=== PATIENT | male | born 1945 | race Caucasian/White ===

== ENCOUNTER 2016-11-23 11:28 | Emergency (ER) | payer MEDICARE, BC ==
[2016-11-23] MEDS ORDERED: SODIUM CHLORIDE 0.9% 500 ML IV STA (11:56)
[2016-11-23] MEDS ORDERED: RX INFO: IV CONTRAST WAS GIVEN 1 EACH MISC MISCELLANE PRN (11:56)
--- NOTE | 2016-11-23 12:11 | ED ---
General Adult HPI - General Chief complaint: Abdominal Pain Stated complaint: abd pain Time Seen by Provider: 11/23/16 11:55 Source: patient, RN notes reviewed, old records reviewed Mode of arrival: ambulatory Limitations: no limitations - History of Present Illness Initial comments: This is a 71-year-old male the ER for evaluation of abdominal pain. Suprapubic and periumbilical doubt pain severe. Pain 5 days. No fevers. No nausea vomiting or diarrhea. Patient's no modifying factors for pain. Is having adequate bowel movements. No travel history or sick contacts - Related Data Home Medications Medication Instructions Recorded Confirmed HYDROcodone/APAP 7.5-325MG [[place] 1 tab PO QID PRN 11/23/16 11/23/16 7.5-325] Meloxicam [Mobic] 7.5 mg PO BID 11/23/16 11/23/16 Previous Rx's Medication Instructions Recorded Ciprofloxacin HCl [Cipro] 500 mg PO Q12HR #14 tablet 11/23/16 HYDROcodone/APAP 5-325MG [[place] 1 tab PO Q6HR PRN #30 tab 11/23/16 5-325] Ondansetron [Zofran] 4 mg PO Q8HR PRN #30 tab 11/23/16 metroNIDAZOLE [Flagyl] 500 mg PO Q8HR #21 tab 11/23/16 Allergies Allergy/AdvReac Type Severity Reaction Status Date / Time No Known Allergies Allergy Verified 11/23/16 12:54 Review of Systems ROS Statement: Those systems with pertinent positive or pertinent negative responses have been documented in the HPI. ROS Other: All systems not noted in ROS Statement are negative. Past Medical History Additional Past Medical History / Comment(s): diverticulitis, broken back History of Any Multi-Drug Resistant Organisms: None Reported Past Surgical History: Orthopedic Surgery Additional Past Surgical History / Comment(s): kidney removed, spleen removed Past Psychological History: No Psychological Hx Reported Smoking Status: Former smoker Past Alcohol Use History: None Reported Past Drug Use History: None Reported General Exam Limitations: no limitations General appearance: alert, in no apparent distress Head exam: Present: atraumatic, normocephalic, normal inspection Eye exam: Present: normal appearance, PERRL, EOMI. Absent: scleral icterus, conjunctival injection, periorbital swelling ENT exam: Present: normal exam, mucous membranes moist Neck exam: Present: normal inspection. Absent: tenderness, meningismus, lymphadenopathy Respiratory exam: Present: normal lung sounds bilaterally. Absent: respiratory distress, wheezes, rales, rhonchi, stridor Cardiovascular Exam: Present: normal rhythm, tachycardia, normal heart sounds. Absent: systolic murmur, diastolic murmur, rubs, gallop, clicks GI/Abdominal exam: Present: soft, normal bowel sounds. Absent: distended, tenderness, guarding, rebound, rigid Extremities exam: Present: normal inspection, full ROM, normal capillary refill. Absent: tenderness, pedal edema, joint swelling, calf tenderness Back exam: Present: normal inspection Neurological exam: Present: alert, oriented X3, CN II-XII intact Psychiatric exam: Present: normal affect, normal mood Skin exam: Present: warm, dry, intact, normal color. Absent: rash Course Vital Signs 11/23/16 11/23/16 11/23/16 11:33 13:00 13:30 Temperature 97.7 F 97.2 F L 97.7 F Pulse Rate 107 H 118 H 76 Respiratory 18 16 16 Rate Blood Pressure 197/92 153/85 151/83 O2 Sat by Pulse 97 96 95 Oximetry 11/23/16 14:27 Temperature 97.8 F Pulse Rate 76 Respiratory 16 Rate Blood Pressure 171/83 O2 Sat by Pulse 97 Oximetry - Reevaluation(s) Reevaluation #1: 11/23/16 14:46 Patient's pain is symptoms are controlled, able to tolerate oral intake Medical Decision Making - Medical Decision Making 71 and LDL upon [facility] diverticulitis history of diverticulitis. No abscess. Patient is able to tolerate oral intake at this time will be discharged home to try conservative outpatient therapy, return if symptoms worsen - Lab Data Result diagrams: 11/23/16 12:50 11/23/16 12:50 Lab Results 11/23/16 11/23/16 11/23/16 Range/Units 12:50 12:50 12:50 WBC 17.8 H (3.8-10.6) k/uL RBC 4.74 (4.30-5.90) m/uL Hgb 15.6 (13.0-17.5) gm/dL Hct 48.6 (39.0-53.0) % MCV 102.7 H (80.0-100.0) fL MCH 33.0 (25.0-35.0) pg MCHC 32.2 (31.0-37.0) g/dL RDW 13.5 (11.5-15.5) % Plt Count 436 (150-450) k/uL Neutrophils % 82 % Lymphocytes % 10 % Monocytes % 5 % Eosinophils % 1 % Basophils % 0 % Neutrophils # 14.7 H (1.3-7.7) k/uL Lymphocytes # 1.8 (1.0-4.8) k/uL Monocytes # 1.0 (0-1.0) k/uL Eosinophils # 0.1 (0-0.7) k/uL Basophils # 0.0 (0-0.2) k/uL Macrocytosis Slight Sodium 138 (137-145) mmol/L Potassium 4.2 (3.5-5.1) mmol/L Chloride 100 (98-107) mmol/L Carbon Dioxide 23 (22-30) mmol/L Anion Gap 15 mmol/L BUN 14 (9-20) mg/dL Creatinine 0.75 (0.66-1.25) mg/dL Est GFR (MDRD) Af Amer >60 (>60 ml/min/1.73 sqM) Est GFR (MDRD) Non-Af >60 (>60 ml/min/1.73 sqM) Glucose 117 H (74-99) mg/dL Plasma Lactic Acid [place] 1.0 (0.7-2.0) mmol/L Calcium 9.9 (8.4-10.2) mg/dL Total Bilirubin 0.8 (0.2-1.3) mg/dL AST 18 (17-59) U/L ALT 25 (21-72) U/L Alkaline Phosphatase 85 (38-126) U/L Total Protein 7.5 (6.3-8.2) g/dL Albumin 4.2 (3.5-5.0) g/dL Amylase 92 (30-110) U/L Lipase 161 (23-300) U/L Urine Color Urine Appearance (Clear) Urine pH (5.0-8.0) Ur Specific [place] (1.001-1.035) Urine Protein (Negative) Urine Glucose (UA) (Negative) Urine Ketones (Negative) Urine Blood (Negative) Urine Nitrite (Negative) Urine Bilirubin (Negative) Urine Urobilinogen (<2.0) mg/dL Ur Leukocyte Esterase (Negative) Urine RBC (0-5) /hpf Urine WBC (0-5) /hpf Hyaline Casts (0-2) /lpf Urine Mucus (None) /hpf 11/23/16 Range/Units 13:00 WBC (3.8-10.6) k/uL RBC (4.30-5.90) m/uL Hgb (13.0-17.5) gm/dL Hct (39.0-53.0) % MCV (80.0-100.0) fL MCH (25.0-35.0) pg MCHC (31.0-37.0) g/dL RDW (11.5-15.5) % Plt Count (150-450) k/uL Neutrophils % % Lymphocytes % % Monocytes % % Eosinophils % % Basophils % % Neutrophils # (1.3-7.7) k/uL Lymphocytes # (1.0-4.8) k/uL Monocytes # (0-1.0) k/uL Eosinophils # (0-0.7) k/uL Basophils # (0-0.2) k/uL Macrocytosis Sodium (137-145) mmol/L Potassium (3.5-5.1) mmol/L Chloride (98-107) mmol/L Carbon Dioxide (22-30) mmol/L Anion Gap mmol/L BUN (9-20) mg/dL Creatinine (0.66-1.25) mg/dL Est GFR (MDRD) Af Amer (>60 ml/min/1.73 sqM) Est GFR (MDRD) Non-Af (>60 ml/min/1.73 sqM) Glucose (74-99) mg/dL Plasma Lactic Acid [place] (0.7-2.0) mmol/L Calcium (8.4-10.2) mg/dL Total Bilirubin (0.2-1.3) mg/dL AST (17-59) U/L ALT (21-72) U/L Alkaline Phosphatase (38-126) U/L Total Protein (6.3-8.2) g/dL Albumin (3.5-5.0) g/dL Amylase (30-110) U/L Lipase (23-300) U/L Urine Color Yellow Urine Appearance Clear (Clear) Urine pH 6.0 (5.0-8.0) Ur Specific [place] 1.026 (1.001-1.035) Urine Protein 3+ H (Negative) Urine Glucose (UA) Negative (Negative) Urine Ketones 3+ H (Negative) Urine Blood Negative (Negative) Urine Nitrite Negative (Negative) Urine Bilirubin Negative (Negative) Urine Urobilinogen 3.0 (<2.0) mg/dL Ur Leukocyte Esterase Negative (Negative) Urine RBC <1 (0-5) /hpf Urine WBC 2 (0-5) /hpf Hyaline Casts 4 H (0-2) /lpf Urine Mucus Few H (None) /hpf - Radiology Data Radiology results: report reviewed (CT pelvis positive for diverticulitis), image reviewed Disposition Clinical Impression: Abdominal pain, Diverticulitis Disposition: HOME SELF-CARE Condition: Good Instructions: Diverticulitis (ED) Prescriptions: Ciprofloxacin HCl [Cipro] 500 mg PO Q12HR #14 tablet HYDROcodone/APAP 5-325MG [[place] 5-325] 1 tab PO Q6HR PRN #30 tab PRN Reason: Pain metroNIDAZOLE [Flagyl] 500 mg PO Q8HR #21 tab Ondansetron [Zofran] 4 mg PO Q8HR PRN #30 tab PRN Reason: Nausea Referrals: Colton Jamison MD [Medical Doctor] - 1-2 days
[2016-11-23 13:10] LABS: Basophils % (A) 0 %; CH 34.2; CHCM 33.5; Eosinophils # (A) 0.1 k/uL (0-0.7); Eosinophils % (A) 1 %; HCT 48.6 % (39.0-53.0); HDW 1.87; HGB 15.6 gm/dL (13.0-17.5); Luc % (Auto) 2; Lymphocytes # (A) 1.8 k/uL (1.0-4.8); Lymphocytes % (A) 10 %; MCHC 32.2 g/dL (31.0-37.0); MCV 102.7 fL (80.0-100.0); Macrocytosis Slight; Mean Platelet Volume 7.8; Monocytes % (A) 5 %; Neutrophils # (A) 14.7 k/uL (1.3-7.7); Neutrophils % (A) 82 %; RBC 4.74 m/uL (4.30-5.90); RDW 13.5 % (11.5-15.5); WBC 17.8 k/uL (3.8-10.6); WBC (Perox) 16.79
[2016-11-23 13:21] LABS: ALT 25 U/L (21-72); AST 18 U/L (17-59); Alkaline Phosphatase 85 U/L (38-126); Amylase 92 U/L (30-110); Anion Gap 15 mmol/L; Blood Urea Nitrogen 14 mg/dL (9-20); Calcium 9.9 mg/dL (8.4-10.2); Carbon Dioxide 23 mmol/L (22-30); Chloride 100 mmol/L (98-107); Glucose 117 mg/dL (74-99); Non-African American GFR(MDRD) >60 (>60 ml/min/1.73 sqM); Potassium 4.2 mmol/L (3.5-5.1); Sodium 138 mmol/L (137-145); Total Bilirubin 0.8 mg/dL (0.2-1.3); Total Protein 7.5 g/dL (6.3-8.2)
[2016-11-23 13:29] LABS: Appearance,Urine Clear (Clear); Bilirubin,Urine Negative (Negative); Glucose,Urine (UA) Negative (Negative); Ketones,Urine 3+ (Negative); Leukocyte Esterase,Urine Negative (Negative); Mucus,Urine Few /hpf; Nitrite,Urine Negative (Negative); Particle Count 7159; Protein,Urine 3+ (Negative); RBC,Urine <1 /hpf (0-5); Specific Gravity,Urine 1.026 (1.001-1.035); UA Billing (MACRO vs. MICRO) MICRO; WBC,Urine 2 /hpf (0-5)
--- NOTE | 2016-11-23 14:29 | CT ---
EXAMINATION TYPE: CT abdomen pelvis w con DATE OF EXAM: 11/23/2016 COMPARISON: NONE HISTORY: Pelvic pain and cramping per patient. Abdominal pain per order CT DLP: 896.2 mGycm, Automated Exposure Control for Dose Reduction was Utilized. CONTRAST: CT scan of the abdomen and pelvis is performed without oral and with IV Contrast, patient injected wi th 100 mL of Omnipaque 300. FINDINGS: LUNG BASES: Dependent atelectasis in both lung bases is present. LIVER/GB: No significant abnormality is appreciated. PANCREAS: No significant abnormality is seen. 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 Hyperdense nodules ex tend along the left paracolic and infracolic gutter with larger confluent area seen on axial image 52 . This extends along the anterior sigmoid colon. ADRENALS: No significant abnormality is seen. KIDNEYS: Left kidney is not visualized and presumed surgically absent. Small round 7 mm soft tissue n odule at left renal bed is noted on axial image 31. Correlate with old outside study as early neoplas tic recurrence cannot be excluded. BOWEL: Evaluation bowel is suboptimal secondary to lack of enteric contrast. There is no suspicious s mall or large bowel dilatation. There are diverticula in the left and sigmoid colon. There is promine nt diverticulosis proximal sigmoid colon. In distal sigmoid colon near sigmoid rectal junction there is eccentric moderate to severe wall thickening with left lateral ill-defined fluid or inflammatory c hange, colitis or acute diverticulitis at this level is suspected. No free air is seen. No well-forme d drainable abscess is noted. PROSTATE/SEMINAL VESICLES: No gross abnormality seen. LYMPH NODES: No greater than 1cm abdominal or pelvic lymph nodes are appreciated. OSSEOUS STRUCTURES: There is marked disc space narrowing and spurring at L4-L5 level. OTHER: There is mild to moderate calcified atherosclerotic change of aorta extending into branch vess els. IMPRESSION: 1. Acute colitis possible diverticulitis in the pelvis near distal sigmoid colon and sigmoid rectal j unction as detailed above.
[2016-11-23] MEDS ORDERED: ONDANSETRON 4 MG/2 ML VIAL IVP STA (14:43)
[2016-11-23] MEDS ORDERED: metroNIDAZOLE 500 MG TAB PO STA (14:43)
[2016-11-23] MEDS ORDERED: MORPHINE SULFATE 4 MG/ML SYRINGE IVP STA (14:43)
[2016-11-23] MEDS ORDERED: CIPROFLOXACIN HCL 500 MG TAB PO STA (14:43)
[2016-11-23] MEDS ORDERED: AMPICILLIN-SULBACTAM 3 GM in SODIUM CHLORIDE 0.9% 100 ML IVPB STA (14:45)
[2016-11-23 16:01] VITALS: BP 188/96; PULSE 77; RESP 19; TEMP 98.7
== END 2016-11-23 16:14 | disposition home or self-care (01) ==
LOC: EC 11:28
DX: K57.32 Diverticulitis of large intestine without perforation or abscess without bleeding (principal); R10.33 Periumbilical pain; R00.0 Tachycardia, unspecified; Z87.891 Personal history of nicotine dependence; Z79.1 Long term (current) use of non-steroidal anti-inflammatories (NSAID)
CPT/HCPCS: 36415; 80053; 82150; 83605; 83690; 85025; 81001; 87086; 74177; 99284; 96374; 96375; J2270; J2405; Q9967; J0295

== ENCOUNTER 2017-07-10 10:48 | Inpatient (IN) | payer MEDICARE, BC ==
[2017-07-10] MEDS ORDERED: ONDANSETRON 4 MG/2 ML VIAL IVP STA (12:40)
[2017-07-10] MEDS ORDERED: SODIUM CHLORIDE 0.9% 1,000 ML IV STA (12:40)
[2017-07-10] MEDS ORDERED: RX INFO: IV CONTRAST WAS GIVEN 1 EACH MISC MISCELLANE PRN (12:40)
[2017-07-10] MEDS: HYDROmorphone 4 MG/ML 1 ML SYRINGE IVP STA ×2 (12:52→17:52)
--- NOTE | 2017-07-10 13:03 | ED ---
General Adult HPI <Larry Heck - Last Filed: 07/10/17 14:52> - General Source: patient, RN notes reviewed Mode of arrival: ambulatory Limitations: no limitations <Colton Layton - Last Filed: 07/10/17 14:55> - General Chief complaint: Abdominal Pain Stated complaint: diverticulitis Time Seen by Provider: 07/10/17 12:28 - History of Present Illness Initial comments: Patient 71-year-old male significant past medical history for diverticulitis presenting today with a chief complaint of possible diverticulitis. This but that is had some abdominal pain over the last few weeks. He states does not seem to be getting any better. He does admit that it feels similar to diverticulitis that is had in the past. He states she's not had any diarrhea has not seen any blood in the stool. Has had bowel movements. He states he has increased pain and cramping on the left side of the abdomen. He denies any other complaints or symptoms. Patient denies any recent fever, chills, shortness of breath, chest pain, vomiting, numbness or tingling, dysuria or hematuria, constipation or diarrhea, headaches or visual changes, or any other complaints. (Colton Layton) - Related Data Home Medications Medication Instructions Recorded Confirmed HYDROcodone/APAP 7.5-325MG [[place] 1 tab PO QID PRN 11/23/16 07/10/17 7.5-325] Meloxicam [Mobic] 7.5 mg PO BID PRN 11/23/16 07/10/17 Msm Powder 1 dose PO DAILY 07/10/17 07/10/17 Allergies Allergy/AdvReac Type Severity Reaction Status Date / Time No Known Allergies Allergy Verified 07/10/17 12:31 Review of Systems ROS Other: All systems not noted in ROS Statement are negative. <Larry Heck - Last Filed: 07/10/17 14:52> ROS Other: All systems not noted in ROS Statement are negative. <Colton Layton - Last Filed: 07/10/17 14:55> ROS Statement: Those systems with pertinent positive or pertinent negative responses have been documented in the HPI. Past Medical History Additional Past Medical History / Comment(s): diverticulitis, broken back History of Any Multi-Drug Resistant Organisms: None Reported Past Surgical History: Orthopedic Surgery Additional Past Surgical History / Comment(s): kidney removed, spleen removed Past Psychological History: No Psychological Hx Reported Smoking Status: Former smoker Past Alcohol Use History: None Reported Past Drug Use History: None Reported <Colton Layton - Last Filed: 07/10/17 14:55> General Exam <Larry Heck - Last Filed: 07/10/17 14:52> Limitations: no limitations <Colton Layton - Last Filed: 07/10/17 14:55> - General Exam Comments Initial Comments: General: The patient is awake and alert, in no distress, and does not appear acutely ill. Eye: Pupils are equal, round and reactive to light, extra-ocular movements are intact. No nystagmus. There is normal conjunctiva bilaterally. No signs of icterus. Ears, nose, mouth and throat: There are moist mucous membranes and no oral lesions. Neck: The neck is supple, there is no tenderness or JVD. Cardiovascular: There is a regular rate and rhythm. No murmur, rub or gallop is appreciated. Respiratory: Lungs are clear to auscultation, respirations are non-labored, breath sounds are equal. No wheezes, stridor, rales, or rhonchi. Gastrointestinal: Soft, non-distended. Tender palpation left side of the abdomen. There is no rebound or guarding present. No CVA tenderness. Bowel sounds are unremarkable. Musculoskeletal: Normal ROM, no tenderness. Strength 5/5. Sensation intact. Pulses equal bilaterally 2+. Neurological: A&O x 3. CN II-XII intact, There are no obvious motor or sensory deficits. Coordination appears grossly intact. Speech is normal. Skin: Skin is warm and dry and no rashes or lesions are noted. Psychiatric: Cooperative, appropriate mood & affect, normal judgment. (Colton Layton) Vital Signs 07/10/17 10:52 Temperature 97.8 F Pulse Rate 100 Respiratory 20 Rate Blood Pressure 145/69 O2 Sat by Pulse 100 Oximetry Medical Decision Making - Lab Data Result diagrams: 07/10/17 12:50 07/10/17 12:50 <Larry Heck - Last Filed: 07/10/17 14:52> - Lab Data Result diagrams: 07/10/17 12:50 07/10/17 12:50 <Colton Layton - Last Filed: 07/10/17 14:55> - Medical Decision Making The patient was seen and examined. All diagnostics were reviewed. Case will be discussed with medicine in the near future and patient will be admitted to the hospital with surgery to consult. I have discussed the case with the PA and I agree with the findings as documented. (Larry Heck) Patient's labs reviewed shows 19,[address] of the abdomen and pelvis reviewed does show sigmoid diverticulitis with multiple abscesses one measuring 6 x 5 cm and a second measuring 3 x 3 cm in size. Results were discussed with patient. She was started on antibiotics of Levaquin and Flagyl here in emergency room. Patient will be admitted to hospital with consult from surgeon. (Colton Layton) - Lab Data Lab Results 07/10/17 07/10/17 Range/Units 12:50 12:50 WBC 19.1 H (3.8-10.6) k/uL RBC 4.16 L (4.30-5.90) m/uL Hgb 13.8 (13.0-17.5) gm/dL Hct 42.7 (39.0-53.0) % MCV 102.9 H (80.0-100.0) fL MCH 33.2 (25.0-35.0) pg MCHC 32.3 (31.0-37.0) g/dL RDW 11.3 L (11.5-15.5) % Plt Count 612 H (150-450) k/uL Neutrophils % 81 % Lymphocytes % 10 % Monocytes % 6 % Eosinophils % 1 % Basophils % 0 % Neutrophils # 15.6 H (1.3-7.7) k/uL Lymphocytes # 2.0 (1.0-4.8) k/uL Monocytes # 1.1 H (0-1.0) k/uL Eosinophils # 0.1 (0-0.7) k/uL Basophils # 0.1 (0-0.2) k/uL Sodium 140 (137-145) mmol/L Potassium 4.2 (3.5-5.1) mmol/L Chloride 99 (98-107) mmol/L Carbon Dioxide 27 (22-30) mmol/L Anion Gap 14 mmol/L BUN 14 (9-20) mg/dL Creatinine 1.10 (0.66-1.25) mg/dL Est GFR (MDRD) Af Amer >60 (>60 ml/min/1.73 sqM) Est GFR (MDRD) Non-Af >60 (>60 ml/min/1.73 sqM) Glucose 125 H (74-99) mg/dL Calcium 9.6 (8.4-10.2) mg/dL Total Bilirubin 0.5 (0.2-1.3) mg/dL AST 21 (17-59) U/L ALT 33 (21-72) U/L Alkaline Phosphatase 78 (38-126) U/L Total Protein 7.3 (6.3-8.2) g/dL Albumin 3.9 (3.5-5.0) g/dL Amylase 65 (30-110) U/L Lipase 85 (23-300) U/L Disposition <Larry Heck - Last Filed: 07/10/17 14:52> Time of Disposition: 14:40 <Colton Layton - Last Filed: 07/10/17 14:55> Clinical Impression: Sigmoid diverticulitis Disposition: ADMITTED IP TO THIS HOSP Condition: Stable Referrals: Rory Damon DO [Primary Care Provider] - 1-2 days
[2017-07-10 13:05] LABS: Basophils # (A) 0.1 k/uL (0-0.2); Basophils % (A) 0 %; Eosinophils # (A) 0.1 k/uL (0-0.7); Eosinophils % (A) 1 %; HCT 42.7 % (39.0-53.0); HGB 13.8 gm/dL (13.0-17.5); Lymphocytes % (A) 10 %; MCH 33.2 pg (25.0-35.0); MCHC 32.3 g/dL (31.0-37.0); MCV 102.9 fL (80.0-100.0); Mean Platelet Volume 7.1; Monocytes # (A) 1.1 k/uL (0-1.0); Monocytes % (A) 6 %; Neutrophils # (A) 15.6 k/uL (1.3-7.7); Neutrophils % (A) 81 %; Platelet Count 612 k/uL (150-450); RBC 4.16 m/uL (4.30-5.90); RDW 11.3 % (11.5-15.5); WBC 19.1 k/uL (3.8-10.6)
[2017-07-10 13:10] LABS: ALT 33 U/L (21-72); AST 21 U/L (17-59); Albumin 3.9 g/dL (3.5-5.0); Alkaline Phosphatase 78 U/L (38-126); Amylase 65 U/L (30-110); Anion Gap 14 mmol/L; Blood Urea Nitrogen 14 mg/dL (9-20); Calcium 9.6 mg/dL (8.4-10.2); Carbon Dioxide 27 mmol/L (22-30); Chloride 99 mmol/L (98-107); Glucose 125 mg/dL (74-99); Lipase 85 U/L (23-300); Potassium 4.2 mmol/L (3.5-5.1); Sodium 140 mmol/L (137-145); Total Bilirubin 0.5 mg/dL (0.2-1.3); Total Protein 7.3 g/dL (6.3-8.2)
--- NOTE | 2017-07-10 14:40 | CT ---
EXAMINATION TYPE: CT abdomen pelvis w con DATE OF EXAM: 07/10/2017 COMPARISON: 11/23/2016 HISTORY: Patient complains of bilateral lower quadrant pain and bloating. CT DLP: 986.1 mGycm CONTRAST: CT scan of the abdomen and pelvis is performed without Oral Contrast and with IV Contrast, patient in jected with 100 mL of Visipaque 320. FINDINGS: LUNG BASES-: No visible nodule. No infiltrate. LIVER/GB: No calcified gallstones. No space occupying hepatic lesion. Biliary tree is of normal ca liber. PANCREAS: No inflammation. No distinct mass. SPLEEN: No splenic enlargement. No lesion seen. ADRENALS: No nodule. No thickening. KIDNEYS/BLADDER: Left-sided nephrectomy changes. No hydronephrosis. No nephrolithiasis. No distinc t renal mass. Reactive urinary bladder wall thickening. BOWEL: There is large multi focal diverticular abscess with dominant abscess measuring 6.3 x 5.8 cm a djacent to the sigmoid colon. An additional abscess is noted measuring 3.8 x 3.3 cm. No evidence for pneumoperitoneum. No additional abscesses seen with certainty. Small bowel ileus noted. Normal append ix. GENITAL ORGANS: No gross abnormality. LYMPH NODES: No greater than 1cm abdominal or pelvic lymph nodes are appreciated. AORTA: No significant abnormality. OSSEOUS STRUCTURES: No significant abnormality is seen. OTHER: No significant additional abnormality is seen. IMPRESSION: 1. Acute sigmoid diverticulitis with multifocal abscess formation as noted above. 2. Reactive wall thickening of the urinary bladder.
[2017-07-10] MEDS ORDERED: metroNIDAZOLE-NS PMX 500 MG in SALINE 1 100ML.BAG IVPB STA (14:45)
[2017-07-10] MEDS ORDERED: LEVOFLOXACIN 750MG-D5W PMX 750 MG in DEXTROSE/WATER 1 150ML.BAG IVPB STA (14:45)
[2017-07-10] MEDS ORDERED: HYDROmorphone 4 MG/ML 1 ML SYRINGE IVP STA (14:51)
[2017-07-10] MEDS ORDERED: HYDROmorphone 2 MG/ML 1 ML SYRINGE IVP PRN (14:52)
[2017-07-10] MEDS ORDERED: NALOXONE 0.4 MG/ML 1 ML VIAL IV PRN (14:52)
[2017-07-10] MEDS ORDERED: HYDROcodone/APAP 7.5-325MG 1 EACH TAB PO PRN (16:51)
[2017-07-10] MEDS: ONDANSETRON 4 MG/2 ML VIAL IVP PRN (19:24)
[2017-07-10] MEDS: HYDROmorphone 4 MG/ML 1 ML SYRINGE IVP PRN ×2 (21:00→23:58)
[2017-07-10] MEDS: metroNIDAZOLE-NS PMX 500 MG in SALINE 1 100ML.BAG IVPB SCH (23:36)
[2017-07-11 00:26] LABS: Appearance,Urine Clear (Clear); Bilirubin,Urine Negative (Negative); Blood,Urine Negative (Negative); Color,Urine Yellow; Glucose,Urine (UA) Negative (Negative); Ketones,Urine 1+ (Negative); Leukocyte Esterase,Urine Negative (Negative); PH, Urine 5.5 (5.0-8.0); Protein,Urine Trace (Negative); Specific Gravity,Urine 1.024 (1.001-1.035); Urobilinogen,Urine <2.0 mg/dL (<2.0)
[2017-07-11] MEDS: HYDROmorphone 4 MG/ML 1 ML SYRINGE IVP PRN ×7 (03:59→22:38)
[2017-07-11 07:34] LABS: Basophils # (A) 0.1 k/uL (0-0.2); Basophils % (A) 0 %; Eosinophils # (A) 0.2 k/uL (0-0.7); Eosinophils % (A) 1 %; HCT 41.5 % (39.0-53.0); HGB 13.4 gm/dL (13.0-17.5); Lymphocytes # (A) 1.7 k/uL (1.0-4.8); Lymphocytes % (A) 10 %; MCH 33.2 pg (25.0-35.0); MCHC 32.4 g/dL (31.0-37.0); MCV 102.5 fL (80.0-100.0); Mean Platelet Volume 7.1; Monocytes # (A) 1.1 k/uL (0-1.0); Monocytes % (A) 6 %; Neutrophils # (A) 14.5 k/uL (1.3-7.7); Neutrophils % (A) 81 %; Platelet Count 599 k/uL (150-450); RBC 4.05 m/uL (4.30-5.90); RDW 11.3 % (11.5-15.5); WBC 17.9 k/uL (3.8-10.6)
[2017-07-11] MEDS: ONDANSETRON 4 MG/2 ML VIAL IVP PRN ×2 (07:37→16:18)
[2017-07-11 07:45] LABS: ALT 27 U/L (21-72); AST 15 U/L (17-59); Albumin 3.4 g/dL (3.5-5.0); Alkaline Phosphatase 76 U/L (38-126); Anion Gap 11 mmol/L; Blood Urea Nitrogen 11 mg/dL (9-20); Calcium 9.6 mg/dL (8.4-10.2); Carbon Dioxide 25 mmol/L (22-30); Chloride 104 mmol/L (98-107); Glucose 117 mg/dL (74-99); Potassium 4.4 mmol/L (3.5-5.1); Sodium 140 mmol/L (137-145); Total Bilirubin 0.6 mg/dL (0.2-1.3); Total Protein 6.6 g/dL (6.3-8.2)
[2017-07-11] MEDS: metroNIDAZOLE-NS PMX 500 MG in SALINE 1 100ML.BAG IVPB SCH ×2 (08:50→16:19)
[2017-07-11] MEDS: PANTOPRAZOLE 40 MG/10 ML VIAL IVP SCH (08:51)
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
[2017-07-11 14:03] LABS: INR 1.2 (<1.2); Prothrombin Time 11.2 sec (9.0-12.0)
[2017-07-11] MEDS ORDERED: LEVOFLOXACIN 500MG-D5W PMX 500 MG in DEXTROSE/WATER 1 100ML.BAG IVPB SCH (15:00)
--- NOTE | 2017-07-11 16:12 | CT ---
EXAMINATION TYPE: CT guided abscess drainage DATE OF EXAM: 07/11/2017 COMPARISON: NONE HISTORY: Pelvic abscess FINDINGS: The procedure is discussed with the patient, the risks, complications, benefits and alternatives, wer e discussed and any questions were answered. Informed consent was obtained. The patient is placed p jacquelyn on the CT table, prepped and draped in the usual sterile fashion. Utilizing a 22-gauge Chiba needle access into the pelvic abscess was achieved and there is conversion to an O.035 system. There was subsequent placement over 0.035 guidewire and serial dilation 8 [place] with placement 8 [place] drainage catheter. Repeat imaging demonstrated ideal placement of the cathet er. Sample sent to pathology for analysis. All elements of maximal barrier technique were utilized. The patient remained stable throughout the procedure with no immediate postprocedural complication. IMPRESSION: 1. Successful CT guided pelvic abscess drainage catheter insertion.
[2017-07-11] MEDS: SODIUM CHLORIDE 0.9% 1,000 ML IV SCH (17:38)
[2017-07-12] MEDS: ONDANSETRON 4 MG/2 ML VIAL IVP PRN ×4 (00:18→23:45)
[2017-07-12] MEDS: metroNIDAZOLE-NS PMX 500 MG in SALINE 1 100ML.BAG IVPB SCH ×4 (00:18→23:45)
[2017-07-12] MEDS: HYDROmorphone 4 MG/ML 1 ML SYRINGE IVP PRN ×8 (01:44→23:45)
[2017-07-12] MEDS: SODIUM CHLORIDE 0.9% 1,000 ML IV SCH ×3 (05:18→20:58)
[2017-07-12] MEDS: PANTOPRAZOLE 40 MG/10 ML VIAL IVP SCH (08:16)
[2017-07-12 08:28] LABS: Basophils # (A) 0.1 k/uL (0-0.2); Basophils % (A) 0 %; Eosinophils # (A) 0.1 k/uL (0-0.7); Eosinophils % (A) 1 %; HCT 41.9 % (39.0-53.0); HGB 13.3 gm/dL (13.0-17.5); Lymphocytes # (A) 1.4 k/uL (1.0-4.8); Lymphocytes % (A) 7 %; MCH 33.5 pg (25.0-35.0); MCHC 31.8 g/dL (31.0-37.0); MCV 105.4 fL (80.0-100.0); Macrocytosis Slight; Mean Platelet Volume 6.9; Monocytes # (A) 1.1 k/uL (0-1.0); Monocytes % (A) 6 %; Neutrophils # (A) 15.5 k/uL (1.3-7.7); Neutrophils % (A) 84 %; Platelet Count 582 k/uL (150-450); RBC 3.97 m/uL (4.30-5.90); RDW 11.3 % (11.5-15.5); WBC 18.5 k/uL (3.8-10.6)
--- NOTE | 2017-07-12 08:55 | P.PN ---
Subjective Progress Note Date: 07/12/17 Principal diagnosis: Diverticulitis Patient had his catheter placed yesterday. He did have some discomfort during the procedure. Catheter is draining purulent fluid. Overall feels better today. He is hungry. White blood cell count is increased at 18. Objective - Vital Signs Vital signs: Vital Signs Temp 98.7 F 07/12/17 07:53 Pulse 72 07/12/17 07:53 Resp 16 07/12/17 07:53 BP 152/73 07/12/17 07:53 Pulse Ox 96 07/12/17 07:53 Intake & Output 07/11/17 07/12/17 07/12/17 18:59 06:59 18:59 Intake Total 800 Balance 800 Weight 90.718 kg Intake: Intake, IV Titration 800 Amount Sodium Chloride 0.9% 1, 700 000 ml @ 100 mls/hr IV . Q10H JAKE Rx#:[id number] metroNIDAZOLE-NS PMX 500 100 mg In Saline 1 100ml.bag @ 100 mls/hr IVPB Q8HR JAKE Rx#:[id number] Other: Voiding Method Toilet Toilet # Voids 2 - Exam Abdomen: Soft, nondistended, mild suprapubic tenderness with catheter intact - Labs CBC & Chem 7: 07/12/17 07:59 07/11/17 07:16 Labs: Abnormal Lab Results - Last 24 Hours (Table) 07/11/17 07/12/17 Range/Units 07:20 07:59 WBC 18.5 H (3.8-10.6) k/uL RBC 3.97 L (4.30-5.90) m/uL MCV 105.4 H (80.0-100.0) fL RDW 11.3 L (11.5-15.5) % Plt Count 582 H (150-450) k/uL Neutrophils # 15.5 H (1.3-7.7) k/uL Monocytes # 1.1 H (0-1.0) k/uL INR 1.2 H (<1.2) Microbiology - Last 24 Hours (Table) 07/11/17 15:30 Gram Stain - Preliminary Aspirate Body Fluid Culture - Preliminary 07/11/17 15:30 Anaerobic Culture - Preliminary Aspirate 07/11/17 15:30 Fungal Culture - Preliminary Aspirate Assessment and Plan (1) Diverticular disease of intestine with perforation and abscess Narrative/Plan: Will advance diet. Continue antibiotics. Consider infectious disease evaluation. Keep drain to dependent drainage. Current Visit: Yes Status: Acute Code(s): K57.80 - DVTRCLI OF INTEST, PART UNSP, W PERF AND ABSCESS W/O BLEED SNOMED Code(s): 101274335
[2017-07-12 09:01] LABS: Anion Gap 13 mmol/L; Blood Urea Nitrogen 10 mg/dL (9-20); Calcium 9.6 mg/dL (8.4-10.2); Carbon Dioxide 26 mmol/L (22-30); Chloride 99 mmol/L (98-107); Glucose 116 mg/dL (74-99); Potassium 4.3 mmol/L (3.5-5.1); Sodium 138 mmol/L (137-145)
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
[2017-07-12] MEDS: LISINOPRIL 5 MG TAB PO SCH (11:23)
[2017-07-12] MEDS: PIPERACILLIN-TAZOBACTAM 3.375 GM in DEXTROSE/WATER 1 50ML.BAG IVPB SCH ×2 (16:45→20:21)
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
[2017-07-13] MEDS: HYDROmorphone 4 MG/ML 1 ML SYRINGE IVP PRN ×5 (04:31→17:51)
[2017-07-13] MEDS: SODIUM CHLORIDE 0.9% 1,000 ML IV SCH ×2 (04:52→22:55)
[2017-07-13 07:38] LABS: Basophils # (A) 0.1 k/uL (0-0.2); Basophils % (A) 0 %; Eosinophils # (A) 0.1 k/uL (0-0.7); Eosinophils % (A) 1 %; HCT 38.6 % (39.0-53.0); HGB 12.3 gm/dL (13.0-17.5); Lymphocytes # (A) 1.4 k/uL (1.0-4.8); Lymphocytes % (A) 9 %; MCH 32.9 pg (25.0-35.0); MCHC 31.9 g/dL (31.0-37.0); MCV 103.3 fL (80.0-100.0); Mean Platelet Volume 7.3; Monocytes % (A) 7 %; Neutrophils # (A) 12.4 k/uL (1.3-7.7); Neutrophils % (A) 81 %; Platelet Count 554 k/uL (150-450); RBC 3.74 m/uL (4.30-5.90); RDW 11.2 % (11.5-15.5); WBC 15.2 k/uL (3.8-10.6)
[2017-07-13 07:47] LABS: Anion Gap 9 mmol/L; Blood Urea Nitrogen 10 mg/dL (9-20); Carbon Dioxide 29 mmol/L (22-30); Chloride 101 mmol/L (98-107); Glucose 117 mg/dL (74-99); Potassium 3.8 mmol/L (3.5-5.1); Sodium 139 mmol/L (137-145)
[2017-07-13] MEDS ORDERED: HYDROmorphone 0.5 MG/0.5 ML SYRINGE IVP PRN (07:51)
[2017-07-13] MEDS: PANTOPRAZOLE 40 MG TABLET PO SCH (08:02)
[2017-07-13] MEDS: HYDROcodone/APAP 5-325MG 1 EACH TAB PO PRN ×4 (08:02→19:57)
[2017-07-13] MEDS: ONDANSETRON 4 MG/2 ML VIAL IVP PRN ×2 (08:03→16:33)
[2017-07-13] MEDS: metroNIDAZOLE-NS PMX 500 MG in SALINE 1 100ML.BAG IVPB SCH ×3 (08:03→23:59)
[2017-07-13] MEDS: PIPERACILLIN-TAZOBACTAM 3.375 GM in DEXTROSE/WATER 1 50ML.BAG IVPB SCH ×2 (09:07→17:52)
[2017-07-13] MEDS: LISINOPRIL 5 MG TAB PO SCH (09:13)
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
--- NOTE | 2017-07-13 17:03 | PN ---
PROGRESS NOTE DATE OF SERVICE: 07/13/17. REASON FOR FOLLOWUP: Abdominal abscess and ruptured diverticulitis. INTERVAL HISTORY: The patient is afebrile. Has been breathing comfortably. Denies any chest pain. Did have slight abdominal pain, more of a dull aching pain, 2 to 3 out of 10, and no radiation. Some nausea but no vomiting. Denies having any diarrhea. EXAMINATION: Blood pressure is 157/58 with a pulse of 68, temperature of 98.6. He is 96% on room air. General description is an elderly male lying in bed in no distress. Respiratory system unlabored breathing. Clear to auscultation anteriorly. Heart S1, S2. Regular rate and rhythm. Abdomen soft. Minimal tender over the lower quadrant area, still has significant amount of purulent drainage from the drainage catheter. LABS: Hemoglobin 12.2, white count 15.2 with a BUN of 10, creatinine 1.08. Abdominal culture with gram-negative sensitivities. DIAGNOSTIC IMPRESSION AND PLAN: Patient with abdominal abscess from ruptured diverticulitis. Plan at this time is to keep the patient on Zosyn and Flagyl while waiting for the culture to finalize to determine his discharge antibiotics. Continue supportive care. MMODL / IJN: [id number] /
--- NOTE | 2017-07-13 20:24 | P.PN ---
Subjective Progress Note Date: 07/13/17 Principal diagnosis: Diverticulitis Patient doing better today. Pain seems to be improved. He is afebrile. White blood cell count improved. Still draining purulent fluid. Some flatus but no bowel movement. Objective - Vital Signs Vital signs: Vital Signs Temp 98.6 F 07/13/17 15:00 Pulse 68 07/13/17 15:00 Resp 18 07/13/17 15:00 BP 157/58 07/13/17 15:00 Pulse Ox 96 07/13/17 15:00 Intake & Output 07/13/17 07/13/17 07/14/17 06:59 18:59 06:59 Intake Total 400 750 Balance 400 750 Intake: Intake, IV Titration 400 750 Amount Piperacillin-Tazobactam 3 50 .375 gm In Dextrose/Water 1 50ml.bag @ 12.5 mls/hr IVPB Q8HR JAKE Rx#: [id number] Sodium Chloride 0.9% 1, 400 600 000 ml @ 75 mls/hr IV . [id number] JAKE Rx#:[id number] metroNIDAZOLE-NS PMX 500 100 mg In Saline 1 100ml.bag @ 100 mls/hr IVPB Q8HR JAKE Rx#:[id number] Other: Voiding Method Toilet Toilet # Voids 2 - Exam Abdomen: Soft, nondistended, mild lower abdominal tenderness - Labs CBC & Chem 7: 07/13/17 07:07 07/13/17 07:07 Labs: Abnormal Lab Results - Last 24 Hours (Table) 07/13/17 07/13/17 Range/Units 07:07 07:07 WBC 15.2 H (3.8-10.6) k/uL RBC 3.74 L (4.30-5.90) m/uL Hgb 12.3 L (13.0-17.5) gm/dL Hct 38.6 L (39.0-53.0) % MCV 103.3 H (80.0-100.0) fL RDW 11.2 L (11.5-15.5) % Plt Count 554 H (150-450) k/uL Neutrophils # 12.4 H (1.3-7.7) k/uL Glucose 117 H (74-99) mg/dL Microbiology - Last 24 Hours (Table) 07/11/17 15:30 Gram Stain - Preliminary Aspirate Body Fluid Culture - Preliminary Escherichia coli Assessment and Plan (1) Diverticular disease of intestine with perforation and abscess Narrative/Plan: Continue IV antibiotics. Appreciate ID input. Continue drainage. Current Visit: Yes Status: Acute Code(s): K57.80 - DVTRCLI OF INTEST, PART UNSP, W PERF AND ABSCESS W/O BLEED SNOMED Code(s): 142843304
[2017-07-13] MEDS: HYDROmorphone 0.5 MG/0.5 ML SYRINGE IVP PRN ×2 (21:00→23:59)
[2017-07-14] MEDS: HYDROcodone/APAP 5-325MG 1 EACH TAB PO PRN ×6 (00:37→23:37)
[2017-07-14] MEDS: ONDANSETRON 4 MG/2 ML VIAL IVP PRN ×3 (00:38→17:07)
[2017-07-14] MEDS: PIPERACILLIN-TAZOBACTAM 3.375 GM in DEXTROSE/WATER 1 50ML.BAG IVPB SCH ×2 (01:09→09:57)
[2017-07-14] MEDS: HYDROmorphone 0.5 MG/0.5 ML SYRINGE IVP PRN ×5 (03:40→16:02)
[2017-07-14] MEDS: SODIUM CHLORIDE 0.9% 1,000 ML IV SCH ×2 (05:35→20:52)
[2017-07-14 07:45] LABS: Basophils % (A) 0 %; Eosinophils # (A) 0.2 k/uL (0-0.7); Eosinophils % (A) 2 %; HCT 41.3 % (39.0-53.0); HGB 12.9 gm/dL (13.0-17.5); Hypochromasia Slight; Lymphocytes # (A) 1.2 k/uL (1.0-4.8); Lymphocytes % (A) 9 %; MCH 33.6 pg (25.0-35.0); MCHC 31.3 g/dL (31.0-37.0); MCV 107.2 fL (80.0-100.0); Macrocytosis Slight; Mean Platelet Volume 7.4; Monocytes # (A) 0.8 k/uL (0-1.0); Monocytes % (A) 6 %; Neutrophils # (A) 11.4 k/uL (1.3-7.7); Neutrophils % (A) 82 %; Platelet Count 567 k/uL (150-450); RBC 3.85 m/uL (4.30-5.90); RDW 11.3 % (11.5-15.5); WBC 13.9 k/uL (3.8-10.6)
[2017-07-14 08:08] LABS: Anion Gap 9 mmol/L; Blood Urea Nitrogen 8 mg/dL (9-20); Calcium 9.5 mg/dL (8.4-10.2); Carbon Dioxide 30 mmol/L (22-30); Chloride 101 mmol/L (98-107); Glucose 115 mg/dL (74-99); Potassium 4.2 mmol/L (3.5-5.1); Sodium 140 mmol/L (137-145)
[2017-07-14] MEDS: LISINOPRIL 5 MG TAB PO SCH (08:39)
[2017-07-14] MEDS: metroNIDAZOLE-NS PMX 500 MG in SALINE 1 100ML.BAG IVPB SCH ×2 (08:40→16:02)
[2017-07-14] MEDS: PANTOPRAZOLE 40 MG TABLET PO SCH (08:40)
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
[2017-07-14] MEDS: AMPICILLIN-SULBACTAM 3 GM in SODIUM CHLORIDE 0.9% 100 ML IVPB SCH ×3 (13:11→22:51)
--- NOTE | 2017-07-14 14:12 | P.PN ---
Subjective Progress Note Date: 07/14/17 Principal diagnosis: Diverticulitis Patient says his pain is improved. Still requiring IV narcotics. Tolerating diet. Drain output seems decreased. No air within the drain per the patient. Objective - Vital Signs Vital signs: Vital Signs Temp 97.1 F L 07/14/17 07:00 Pulse 66 07/14/17 07:00 Resp 16 07/14/17 07:00 BP 137/79 07/14/17 07:00 Pulse Ox 96 07/14/17 07:00 Intake & Output 07/13/17 07/14/17 07/14/17 18:59 06:59 18:59 Intake Total 750 1075 Balance 750 1075 Intake: Intake, IV Titration 750 1075 Amount Piperacillin-Tazobactam 3 50 50 .375 gm In Dextrose/Water 1 50ml.bag @ 12.5 mls/hr IVPB Q8HR JAKE Rx#: [id number] Sodium Chloride 0.9% 1, 600 825 000 ml @ 75 mls/hr IV . [id number] JAKE Rx#:[id number] metroNIDAZOLE-NS PMX 500 100 200 mg In Saline 1 100ml.bag @ 100 mls/hr IVPB Q8HR JAKE Rx#:[id number] Other: Voiding Method Toilet Toilet Toilet # Voids 1 - Exam Abdomen: Soft, mild tenderness lower abdomen, nondistended - Labs CBC & Chem 7: 07/14/17 07:12 07/14/17 07:12 Labs: Abnormal Lab Results - Last 24 Hours (Table) 07/14/17 07/14/17 Range/Units 07:12 07:12 WBC 13.9 H (3.8-10.6) k/uL RBC 3.85 L (4.30-5.90) m/uL Hgb 12.9 L (13.0-17.5) gm/dL MCV 107.2 H (80.0-100.0) fL RDW 11.3 L (11.5-15.5) % Plt Count 567 H (150-450) k/uL Neutrophils # 11.4 H (1.3-7.7) k/uL BUN 8 L (9-20) mg/dL Glucose 115 H (74-99) mg/dL Microbiology - Last 24 Hours (Table) 07/11/17 15:30 Gram Stain - Preliminary Aspirate Body Fluid Culture - Preliminary Escherichia coli Assessment and Plan (1) Diverticular disease of intestine with perforation and abscess Narrative/Plan: Patient seems to be improving. White blood cell count improved. Will advance diet. Continue IV antibiotics. Minimize narcotic use. Current Visit: Yes Status: Acute Code(s): K57.80 - DVTRCLI OF INTEST, PART UNSP, W PERF AND ABSCESS W/O BLEED SNOMED Code(s): 321761210
--- NOTE | 2017-07-14 18:31 | PN ---
PROGRESS NOTE DATE OF SERVICE: 07/14/2017. REASON FOR FOLLOW UP: Intraabdominal abscess from ruptured diverticulitis. INTERVAL HISTORY: The patient is afebrile, has been breathing comfortably. Denies significant chest pain or cough. No nausea, vomiting, abdominal pain slightly improved. No diarrhea. EXAMINATION: Blood pressure 146/75 with a pulse of 85, temperature of 98. He is 97% on room air. General description is an elderly male lying in bed in no distress. Respiratory system: Unlabored breathing. Clear to auscultation anteriorly. Heart S1, S2. Regular rate and rhythm. ABDOMEN: Soft. No tenderness. Extremities: No edema of feet. LABS: Hemoglobin 12.8, white count 13.9 with a BUN of 8, creatinine 0.99. Wound culture finalized with E coli. DIAGNOSTIC IMPRESSION AND PLAN: Patient with abdominal abscess status post CT-guided drainage. Would recommend keeping the patient on IV antibiotics has been adjusted to Unasyn 3 g q.6h as the E coli with sensitive pathogen. Recommend obtaining a CT on Monday and the patient did have overall resolution of this abscess. May be able to switch him to oral antibiotic therapy. However he still has persistent abscess. He may benefit from PICC line, likely an outpatient IV antibiotic therapy. MMODL / IJN: [id number] /
[2017-07-14] MEDS: HYDROmorphone 4 MG TABLET PO PRN (20:50)
[2017-07-14] MEDS: ACETAMINOPHEN TAB 325 MG TAB PO PRN (22:48)
[2017-07-14] MEDS: metroNIDAZOLE 500 MG TAB PO SCH (22:49)
[2017-07-15] MEDS: HYDROmorphone 4 MG TABLET PO PRN ×7 (00:36→23:10)
[2017-07-15] MEDS: HYDROcodone/APAP 5-325MG 1 EACH TAB PO PRN ×4 (04:06→20:38)
[2017-07-15] MEDS: SODIUM CHLORIDE 0.9% 1,000 ML IV SCH ×2 (04:07→20:42)
[2017-07-15] MEDS: AMPICILLIN-SULBACTAM 3 GM in SODIUM CHLORIDE 0.9% 100 ML IVPB SCH ×4 (05:17→23:06)
[2017-07-15] MEDS: ONDANSETRON 4 MG/2 ML VIAL IVP PRN ×3 (05:22→22:15)
[2017-07-15 07:45] LABS: ALT 25 U/L (21-72); AST 16 U/L (17-59); Albumin 2.9 g/dL (3.5-5.0); Alkaline Phosphatase 56 U/L (38-126); Anion Gap 9 mmol/L; Blood Urea Nitrogen 5 mg/dL (9-20); Carbon Dioxide 30 mmol/L (22-30); Chloride 101 mmol/L (98-107); Glucose 108 mg/dL (74-99); Potassium 3.7 mmol/L (3.5-5.1); Sodium 140 mmol/L (137-145); Total Bilirubin 0.4 mg/dL (0.2-1.3); Total Protein 5.6 g/dL (6.3-8.2)
[2017-07-15 07:47] LABS: Basophils % (A) 0 %; Eosinophils # (A) 0.2 k/uL (0-0.7); Eosinophils % (A) 1 %; HCT 37.4 % (39.0-53.0); HGB 12.2 gm/dL (13.0-17.5); Lymphocytes # (A) 1.2 k/uL (1.0-4.8); Lymphocytes % (A) 8 %; MCH 33.4 pg (25.0-35.0); MCHC 32.5 g/dL (31.0-37.0); MCV 102.8 fL (80.0-100.0); Mean Platelet Volume 7.3; Monocytes # (A) 1.1 k/uL (0-1.0); Monocytes % (A) 8 %; Neutrophils % (A) 80 %; Platelet Count 500 k/uL (150-450); RBC 3.64 m/uL (4.30-5.90); RDW 11.3 % (11.5-15.5); WBC 13.7 k/uL (3.8-10.6)
[2017-07-15] MEDS: LISINOPRIL 5 MG TAB PO SCH (08:09)
[2017-07-15] MEDS: PANTOPRAZOLE 40 MG TABLET PO SCH (08:09)
[2017-07-15] MEDS: metroNIDAZOLE 500 MG TAB PO SCH ×3 (08:09→23:06)
--- NOTE | 2017-07-15 09:45 | P.PN ---
Progress Note - Text Progress Note Date: 07/15/17 The patient has complaints of some left lower quadrant pain. His white count is essentially unchanged at 13.7. On exam is lesser stable. His abdomen is soft. There is tenderness left lower quadrant. Diverticulitis. Patient received IV antibiotics. He'll be closely observed.
--- NOTE | 2017-07-15 22:08 | PN ---
PROGRESS NOTE I am covering for Dr. Damon. This 71-year-old gentleman admitted with sigmoid diverticulitis with multiple abscesses, is being closely monitored. Patient still has abdominal pain. Last night also the patient had abdominal pain. Surgery is following the patient closely, as is Infectious Disease. No fever. No cough. EXAM: Alert and oriented x3. Pulse 90, blood pressure 149/73, respirations 18, temperature 99.4, pulse ox 95% on room air. HEENT: Conjunctivae normal. NECK: No jugular venous distention. CARDIOVASCULAR: S1, S2 muffled. RESPIRATORY: Breath sounds diminished in the bases. A few scattered rhonchi. No crackles. ABDOMEN: Soft. Mild diffuse tenderness present. CLARISSE drain is also present. LEGS: No edema. No swelling. NERVOUS SYSTEM: Higher functions as mentioned earlier. Moves all 4 limbs. No focal deficits. LYMPHATIC: No lymphadenopathy in neck or axillae. SKIN: No ulcer, rash or bleeding. LABS: WBC 13.2, hemoglobin is 12.2. Influenza is negative. ASSESSMENT: 1. Acute sigmoid diverticulitis with multiple abscesses. 2. Status post [place] drainage, cultures positive for Escherichia coli. 3. Small-bowel ileus. 4. Leukocytosis. 5. Hypertension. 6. History of diverticulitis. 7. History of nicotine dependence. RECOMMENDATIONS AND DISCUSSION: Recommend continuing current medical management and symptomatic treatment. Continue with antibiotics. Closely follow with Infectious Disease and Surgery. Guarded prognosis. Further recommendations to follow. MMODL / IJN: [id number] /
[2017-07-16] MEDS: HYDROmorphone 4 MG TABLET PO PRN ×7 (02:27→23:13)
[2017-07-16] MEDS: HYDROcodone/APAP 5-325MG 1 EACH TAB PO PRN ×5 (04:26→23:06)
[2017-07-16] MEDS: ONDANSETRON 4 MG/2 ML VIAL IVP PRN ×3 (05:49→23:07)
[2017-07-16] MEDS: AMPICILLIN-SULBACTAM 3 GM in SODIUM CHLORIDE 0.9% 100 ML IVPB SCH ×4 (05:49→23:14)
[2017-07-16 07:40] LABS: ALT 28 U/L (21-72); AST 15 U/L (17-59); Albumin 3.1 g/dL (3.5-5.0); Alkaline Phosphatase 64 U/L (38-126); Anion Gap 12 mmol/L; Blood Urea Nitrogen 4 mg/dL (9-20); Calcium 9.1 mg/dL (8.4-10.2); Carbon Dioxide 28 mmol/L (22-30); Chloride 100 mmol/L (98-107); Glucose 112 mg/dL (74-99); Sodium 140 mmol/L (137-145); Total Bilirubin 0.4 mg/dL (0.2-1.3)
[2017-07-16 07:43] LABS: Potassium 3.9 mmol/L (3.5-5.1)
[2017-07-16 08:13] LABS: Basophils % (A) 0 %; Eosinophils # (A) 0.1 k/uL (0-0.7); Eosinophils % (A) 1 %; HCT 39.6 % (39.0-53.0); HGB 12.4 gm/dL (13.0-17.5); Lymphocytes # (A) 1.6 k/uL (1.0-4.8); Lymphocytes % (A) 11 %; MCH 33.1 pg (25.0-35.0); MCHC 31.2 g/dL (31.0-37.0); MCV 106.1 fL (80.0-100.0); Macrocytosis Slight; Monocytes % (A) 7 %; Neutrophils # (A) 10.7 k/uL (1.3-7.7); Neutrophils % (A) 79 %; Platelet Count 536 k/uL (150-450); RBC 3.73 m/uL (4.30-5.90); RDW 11.6 % (11.5-15.5); WBC 13.6 k/uL (3.8-10.6)
[2017-07-16] MEDS: metroNIDAZOLE 500 MG TAB PO SCH ×3 (08:13→23:19)
[2017-07-16] MEDS: LISINOPRIL 5 MG TAB PO SCH (08:13)
[2017-07-16] MEDS: PANTOPRAZOLE 40 MG TABLET PO SCH (08:13)
--- NOTE | 2017-07-16 08:31 | P.PN ---
Progress Note - Text Progress Note Date: 07/16/17 The patient states he feels better today. His pain has decreased. On exam his vital signs are still. His abdomen soft. There is minimal tenderness left lower quadrant. Resolving diverticulitis. Patient will be hopefully discharge next 24-48 hours.
[2017-07-16] MEDS: SODIUM CHLORIDE 0.9% 1,000 ML IV SCH (12:18)
--- NOTE | 2017-07-16 18:18 | PN ---
PROGRESS NOTE DATE OF SERVICE: 07/16/2017 I am covering for Dr. Damon. This 71-year-old gentleman admitted with acute diverticulitis, multiple abscesses, being closely monitored. Patient is feeling slightly better. No chest pain. No palpitations. Mild fever is noted. PHYSICAL EXAM: Alert and oriented. Pulse 78, blood pressure 150/70, respiration 18, temperature 100.2, pulse ox 98% room air. HEENT: Conjunctivae normal. Oral mucosa moist. NECK: No jugular venous distention. No lymph nodes. CARDIOVASCULAR: S1, S2. RESPIRATORY: Breath sounds diminished in the bases. No rhonchi, no crackles. ABDOMEN: Soft, mild diffuse distention. Mild diffuse tenderness. No guarding. No rigidity. No mass palpable. Bowel sounds present. No ascites. LEGS: No edema. NERVOUS SYSTEM: No focal deficits. LABS: WBC 13.6. ASSESSMENT: 1. Acute sigmoid diverticulitis with multiple abscesses. 2. Status post CLARISSE drainage, culture positive E coli. 3. Small-bowel ileus. 4. Leukocytosis. 5. Hypertension. 6. History of diverticulitis. 7. History of nicotine dependence. RECOMMENDATIONS AND DISCUSSION: I recommend to continue current management and symptomatic treatment. Monitor the patient closely. I would recommend continue the antibiotics. Follow up with Infectious Disease and Surgery. Further recommendations to follow. Dr. Dmaon will follow. MMODL / IJN: [id number] /
[2017-07-16] MEDS: ACETAMINOPHEN TAB 325 MG TAB PO PRN (21:04)
[2017-07-16] MEDS ORDERED: RX INFO: IV CONTRAST WAS GIVEN 1 EACH MISC MISCELLANE PRN (23:22)
[2017-07-17] MEDS: HYDROmorphone 4 MG TABLET PO PRN ×4 (03:44→13:05)
[2017-07-17] MEDS: HYDROcodone/APAP 5-325MG 1 EACH TAB PO PRN ×4 (03:46→21:02)
[2017-07-17] MEDS: AMPICILLIN-SULBACTAM 3 GM in SODIUM CHLORIDE 0.9% 100 ML IVPB SCH ×3 (05:27→17:37)
[2017-07-17] MEDS: SODIUM CHLORIDE 0.9% 1,000 ML IV SCH ×3 (05:27→21:04)
[2017-07-17] MEDS: IOHEXOL 350 MG/ML 25 ML BOTTLE (ORAL USE) PO PRN ×2 (06:17→07:56)
[2017-07-17] MEDS: metroNIDAZOLE 500 MG TAB PO SCH ×2 (07:35→14:59)
[2017-07-17] MEDS: PANTOPRAZOLE 40 MG TABLET PO SCH (07:35)
[2017-07-17] MEDS: ACETAMINOPHEN TAB 325 MG TAB PO PRN ×3 (07:36→21:02)
[2017-07-17 07:44] LABS: ALT 29 U/L (21-72); AST 21 U/L (17-59); Albumin 3.3 g/dL (3.5-5.0); Alkaline Phosphatase 63 U/L (38-126); Anion Gap 12 mmol/L; Blood Urea Nitrogen 5 mg/dL (9-20); Calcium 9.1 mg/dL (8.4-10.2); Carbon Dioxide 28 mmol/L (22-30); Chloride 99 mmol/L (98-107); Glucose 129 mg/dL (74-99); Potassium 4.4 mmol/L (3.5-5.1); Sodium 139 mmol/L (137-145); Total Bilirubin 0.4 mg/dL (0.2-1.3); Total Protein 6.3 g/dL (6.3-8.2)
--- NOTE | 2017-07-17 07:49 | PN ---
PROGRESS NOTE DATE OF SERVICE: 07/16/2017 REASON FOR FOLLOWUP: Abdominal abscess from ruptured diverticulitis. INTERVAL HISTORY: The patient is afebrile. He has been complaining of some lower abdominal pain. Overall output in the drainage catheter has decreased. Denies having any chest pain or shortness of breath or cough. PHYSICAL EXAMINATION: On examination, blood pressure 152/78 with a pulse of 82, temperature of 100.2. He is 96% on room air. General description is an elderly male lying in bed in no distress. RESPIRATORY SYSTEM: Unlabored breathing, clear to auscultation anteriorly. HEART: S1, S2. Regular rate and rhythm. ABDOMEN: Soft, minimal tenderness. LABS: Hemoglobin 12.4, white count 13.6 with a BUN of 4, creatinine 0.87. DIAGNOSTIC IMPRESSION AND PLAN: Patient with abdominal abscess from ruptured diverticulitis, now with low-grade fever and no output in the drainage catheter. CT will be repeated. Blood culture will be repeated. The patient will be continued on Unasyn and Flagyl at this point. Continue with supportive care. MMODL / IJN: [id number] /
[2017-07-17 07:55] LABS: Basophils # (A) 0.1 k/uL (0-0.2); Basophils % (A) 1 %; Eosinophils # (A) 0.1 k/uL (0-0.7); Eosinophils % (A) 1 %; HCT 40.5 % (39.0-53.0); HGB 12.6 gm/dL (13.0-17.5); Lymphocytes # (A) 0.5 k/uL (1.0-4.8); Lymphocytes % (A) 4 %; MCH 32.5 pg (25.0-35.0); Macrocytosis Slight; Monocytes # (A) 0.9 k/uL (0-1.0); Monocytes % (A) 6 %; Neutrophils # (A) 12.8 k/uL (1.3-7.7); Neutrophils % (A) 87 %; Platelet Count 543 k/uL (150-450); RBC 3.86 m/uL (4.30-5.90); RDW 11.6 % (11.5-15.5); WBC 14.8 k/uL (3.8-10.6)
[2017-07-17] MEDS: ONDANSETRON 4 MG/2 ML VIAL IVP PRN (08:50)
[2017-07-17] MEDS: LISINOPRIL 5 MG TAB PO SCH (08:50)
--- NOTE | 2017-07-17 10:43 | P.PN ---
<Mony Aadmsne M - Last Filed: 07/17/17 13:25> Subjective Progress Note Date: 07/17/17 71-year-old male seen and examined just returned from having a CAT scan abdomen pelvis results pending states there is decrease abdominal pain pain medication effective for pain. Patient states he still needs IV dilaudid, with [place] to control the pain states passing gas had a bowel movement yesterday afternoon no nausea vomiting.. Did note the patient did spike a temp of 102 last night current temp of 101 .5 this morning Percutaneous drain in place approximately 20 MLS creamy drainage being followed by surgical services for treatment of sigmoid diverticulitis with multiple abscess with insertion of drainage catheter by interventional radiology on 07/11/2017 Objective - Vital Signs Vital signs: Vital Signs Temp 101.5 F H 07/17/17 07:00 Pulse 82 07/17/17 08:00 Resp 16 07/17/17 08:00 BP 173/78 07/17/17 07:00 Pulse Ox 94 L 07/17/17 07:00 Intake & Output 07/16/17 07/17/17 07/17/17 18:59 06:59 18:59 Intake Total 240 1190 Output Total 0 Balance 240 1190 Intake: Intake, IV Titration 600 Amount Sodium Chloride 0.9% 1, 600 000 ml @ 75 mls/hr IV . [id number] [facility] Rx#:[id number] Oral 240 590 Output: Drainage 0 Abdomen 0 Other: Voiding Method Toilet Toilet Toilet # Voids 3 2 # Bowel Movements 1 - Exam Focused exam Abdomen flat nondistended mild tenderness lower abdominal wall percutaneous drain in place with milky colored secretions noted reports tolerating a diet no nausea no vomiting bowel tones present reports an improvement in the abdominal pain - Labs CBC & Chem 7: 07/17/17 06:56 07/17/17 06:56 Labs: Abnormal Lab Results - Last 24 Hours (Table) 07/17/17 07/17/17 Range/Units 06:56 06:56 WBC 14.8 H (3.8-10.6) k/uL RBC 3.86 L (4.30-5.90) m/uL Hgb 12.6 L (13.0-17.5) gm/dL MCV 105.0 H (80.0-100.0) fL Plt Count 543 H (150-450) k/uL Neutrophils # 12.8 H (1.3-7.7) k/uL Lymphocytes # 0.5 L (1.0-4.8) k/uL BUN 5 L (9-20) mg/dL Glucose 129 H (74-99) mg/dL Albumin 3.3 L (3.5-5.0) g/dL Assessment and Plan Assessment: Impression 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 Status post percutaneous drain pelvic abscess with cultures positive E. coli Febrile with leukocytosis unclear etiology Plan Nothing by mouth after midnight re-eval in the morning possible surgical intervention to address diverticulitis with multiple diverticular abscess if no noted improvement Follow up on the pending CT abdomen and pelvis further recommendations after review the CAT scan Pain control Antibiotics per infectious disease defer to DVT and GI prophylaxis Will follow with you The above impression and plan of care have been discussed and directed by signing physician. Marily Adams nurse practitioner acting as scribe for signing physician. <Colton Jamison - Last Filed: 07/17/17 13:28> Objective - Vital Signs Vital signs: Vital Signs Temp 101.5 F H 07/17/17 07:00 Pulse 82 07/17/17 08:00 Resp 16 07/17/17 08:00 BP 173/78 07/17/17 07:00 Pulse Ox 94 L 07/17/17 07:00 Intake & Output 07/16/17 07/17/17 07/17/17 18:59 06:59 18:59 Intake Total 240 1190 Output Total 0 Balance 240 1190 Intake: Intake, IV Titration 600 Amount Sodium Chloride 0.9% 1, 600 000 ml @ 75 mls/hr IV . [id number] [facility] Rx#:[id number] Oral 240 590 Output: Drainage 0 Abdomen 0 Other: Voiding Method Toilet Toilet Toilet # Voids 3 2 # Bowel Movements 1 - Labs CBC & Chem 7: 07/17/17 06:56 07/17/17 06:56 Labs: Abnormal Lab Results - Last 24 Hours (Table) 07/17/17 07/17/17 Range/Units 06:56 06:56 WBC 14.8 H (3.8-10.6) k/uL RBC 3.86 L (4.30-5.90) m/uL Hgb 12.6 L (13.0-17.5) gm/dL MCV 105.0 H (80.0-100.0) fL Plt Count 543 H (150-450) k/uL Neutrophils # 12.8 H (1.3-7.7) k/uL Lymphocytes # 0.5 L (1.0-4.8) k/uL BUN 5 L (9-20) mg/dL Glucose 129 H (74-99) mg/dL Albumin 3.3 L (3.5-5.0) g/dL Assessment and Plan Assessment: As above. Patient started having fevers over the weekend. White blood cell count remains elevated. He states he has been coughing and bringing up some sputum. He believes his abdominal pain is improved from 2 days ago. He still however is requesting IV narcotics. Drain output has decreased. No air within the drain tube. Repeat CAT scan today showed resolution of the abscess that was drained with persistence of the second collection containing air. The second collection is without significant changes. He did have bowel movements over the weekend. He is tolerating his diet. At this point we discussed the options of aborting our attempts at conservative management of this diverticular abscess. He believes however that he is improving and would like to avoid surgery at this time. We'll monitor fevers today. Check chest x-ray to see if this is a possible source. Repeat labs tomorrow. If fevers persist we'll rediscuss exploration. (1) Diverticular disease of intestine with perforation and abscess Current Visit: Yes Status: Acute Code(s): K57.80 - DVTRCLI OF INTEST, PART UNSP, W PERF AND ABSCESS W/O BLEED SNOMED Code(s): 722498327
[2017-07-17] MEDS ORDERED: LISINOPRIL 5 MG TAB PO STA (11:55)
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
--- NOTE | 2017-07-17 13:43 | CT ---
EXAMINATION TYPE: CT abdomen pelvis w con DATE OF EXAM: 07/17/2017 COMPARISON: NONE INDICATION: Patient complains of fever. Follow up on known abscess. DLP: 1116.1 mGycm, Automated exposure control for dose reduction was used. CONTRAST: 80 mL of Visipaque 320. Study performed with Oral Contrast TECHNIQUE: Axial images were obtained from above the diaphragm to the pubic rami in the axial plane a t 5 mm thick sections. Reconstructed images are reviewed on the computer in the coronal plane. FINDINGS: Limited CT sections are obtained the lung bases. The lung bases are clear. Some coronary artery fidelia cification is noted. CT ABDOMEN: Liver: Normal Spleen: Absent. Couple splenules are likely present. Splenule or small nodularity may be posterior to the right adrenal gland. This measures 0.8 cm. Pancreas: Normal Adrenal glands: The adrenal glands are normal. Gallbladder: Normal Kidneys: Left kidney is absent. Right kidney appears normal without masses cysts or hydronephrosis.. Delayed images were obtained through the right kidney which are unremarkable. Aorta: Vascular calcification is within the aorta. Inferior vena cava: Normal. CT PELVIS: Multiple diverticuli are within the sigmoid colon. Mild inflammatory changes adjacent. The re is a drainage catheter superior to the sigmoid colon. No large abscess is identified. Previous hyp odense abscess is not evident. The nondrainable collection over the distal sigmoid colon may remain p resent. This area measures 4.5 x 3.4 on the current exam Loops of bowel within the abdomen and pelvis are normal. There are loops of bowel which are incom pletely distended or lack oral contrast limiting their evaluation. Appendix: Normal as visualized. Urinary bladder: Normal. Genitourinary structures: Prostate has mild prominence Osseous structures: Degenerative disc changes are within the lumbar spine. IMPRESSIONS: 1. Collapse of the previous large low-density abscess over the proximal sigmoid diverticulitis. 2. Stable appearance of a suspected 4.5 cm abscess over the more distal sigmoid colon 3. Sigmoid diverticulosis. Acute diverticulitis appears to be resolving.
--- NOTE | 2017-07-17 19:48 | XR ---
EXAMINATION TYPE: XR chest 2V DATE OF EXAM: 07/17/2017 COMPARISON: NONE HISTORY: Fever and cough TECHNIQUE: Frontal and lateral views of the chest are obtained. FINDINGS: Thoracic aorta is atheromatous. There is no heart failure. Heart size is normal. There is very slight blunting of the posterior costophrenic angles. Lungs are clear of consolidation. There is a mild thoracic kyphotic deformity. IMPRESSION: Normal heart. No acute lung disease.. 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
[2017-07-17] MEDS: OSELTAMIVIR 75 MG CAP PO SCH (21:03)
--- NOTE | 2017-07-18 00:03 | PN ---
PROGRESS NOTE DATE OF SERVICE: 07/17/2017. REASON FOR FOLLOW UP: Diverticular abscess, new fever, INTERVAL HISTORY: The patient was seen on rounds this morning. The patient has been spiking fever for which a CT of the abdomen and pelvis has been ordered. The patient did mention that overall abdominal pain has improved. He denies having any nausea or vomiting. Did have a bowel movement. Denies any chest pain or shortness of breath. Some mild cough, but no significant URI symptoms. EXAMINATION: Blood pressure is 133/78 with a pulse of 88, temperature of 101.5. She is 94% on room air. GENERAL DESCRIPTION: An elderly male lying in bed in no distress. RESPIRATORY: Unlabored breathing. Clear to auscultation anteriorly. HEART: S1, S2. Regular rate. EXTREMITIES: No edema. Drainage tube present with no significant drainage. LABS: Hemoglobin is 12.6, white count 14.8, BUN of 4 5, creatinine 1.4. DIAGNOSTIC IMPRESSION AND PLAN: Patient with abdominal abscess from ruptured diverticulitis. Culture positive for E coli and anaerobic gram-negative. Currently on Unasyn and Flagyl. Will be continued. Repeat CT showing did show resolution of the abscess that was drained, however, did have another collection deep for about 4.3 cm, which has not changed significantly. The patient's the fever could be related to the acute influenza as serology came back positive. The patient was started on Tamiflu, we will see response to the same. If the patient did have a persistent fever or if there is a jump in white count, may need surgical aspiration and drainage of the deep fluid collection. Continue supportive care. MMODL / IJN: [id number] /
[2017-07-18] MEDS: AMPICILLIN-SULBACTAM 3 GM in SODIUM CHLORIDE 0.9% 100 ML IVPB SCH ×3 (00:12→13:39)
[2017-07-18] MEDS: metroNIDAZOLE 500 MG TAB PO SCH ×4 (00:12→23:29)
[2017-07-18] MEDS: ACETAMINOPHEN TAB 325 MG TAB PO PRN ×3 (04:08→13:06)
[2017-07-18] MEDS: HYDROcodone/APAP 5-325MG 1 EACH TAB PO PRN ×4 (04:08→19:19)
[2017-07-18 07:05] LABS: Glucose,Whole Blood 102 mg/dL (75-99)
--- NOTE | 2017-07-18 08:35 | P.PN ---
<Mony Adamsken Villar - Last Filed: 07/18/17 08:25> Subjective Progress Note Date: 07/18/17 71-year-old male seen and examined at bedside. Patient reports there is a noted improvement in the abdominal pain oral Peever are effective for pain control. Did note that the patient is positive for influenza a. Labs are pending temp this morning 97.9. At midnight temp was 100.4. No cough noted. Objective - Vital Signs Vital signs: Vital Signs Temp 97.9 F 07/18/17 07:00 Pulse 80 07/18/17 07:00 Resp 16 07/18/17 07:00 BP 130/59 07/18/17 07:00 Pulse Ox 96 07/18/17 07:00 Intake & Output 07/17/17 07/18/17 07/18/17 18:59 06:59 18:59 Intake Total 625 2890 Balance 625 2890 Weight 90.718 kg 90.718 kg Intake: Intake, IV Titration 625 1100 Amount Ampicillin-Sulbactam 3 gm 100 200 In Sodium Chloride 0.9% 100 ml @ 100 mls/hr IVPB Q6HR [facility] Rx#:[id number] Sodium Chloride 0.9% 1, 525 900 000 ml @ 75 mls/hr IV . [id number] [facility] Rx#:[id number] Oral 1790 Other: Voiding Method Toilet Toilet # Voids 1 - Exam Physical exam Pleasant 71-year-old male resting in bed chief complaint tired out" Lungs adequate air movement bilaterally clear no cough Heart S1-S2 audible regular denying chest pain Abdomen percutaneous drain in place approximately 20ml in drainage bag less tenderness drainage unchanged. purulent Milky in color Extremities no edema noted - Labs CBC & Chem 7: 07/17/17 06:56 07/17/17 06:56 Labs: Abnormal Lab Results - Last 24 Hours (Table) 07/17/17 07/17/17 07/18/17 Range/Units 06:56 17:34 07:02 WBC 14.8 H (3.8-10.6) k/uL RBC 3.86 L (4.30-5.90) m/uL Hgb 12.6 L (13.0-17.5) gm/dL MCV 105.0 H (80.0-100.0) fL Plt Count 543 H (150-450) k/uL Neutrophils # 12.8 H (1.3-7.7) k/uL Lymphocytes # 0.5 L (1.0-4.8) k/uL POC Glucose (mg/dL) 102 H (75-99) mg/dL Influenza Type A RNA Detected H (Not Detectd) Microbiology - Last 24 Hours (Table) 07/16/17 23:48 Blood Culture - Preliminary Blood No Growth after 24 hours Assessment and Plan Assessment: Impression 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 Resolving Status post percutaneous drain pelvic abscess with cultures positive E. coli Febrile with leukocytosis likely due to influenza A Plan Tamiflu per medicine service defer to Pain control Antibiotics per infectious disease defer to DVT and GI prophylaxis Will follow with you The above impression and plan of care have been discussed and directed by signing physician. Marily Adams nurse practitioner acting as scribe for signing physician. <Colton Jamison - Last Filed: 07/18/17 13:15> Objective - Vital Signs Vital signs: Vital Signs Temp 97.9 F 07/18/17 07:00 Pulse 82 07/18/17 08:00 Resp 16 07/18/17 08:00 BP 130/59 07/18/17 07:00 Pulse Ox 96 07/18/17 07:00 Intake & Output 07/17/17 07/18/17 07/18/17 18:59 06:59 18:59 Intake Total 625 2890 240 Output Total 600 Balance 625 2890 -360 Weight 90.718 kg 90.718 kg Intake: Intake, IV Titration 625 1100 Amount Ampicillin-Sulbactam 3 gm 100 200 In Sodium Chloride 0.9% 100 ml @ 100 mls/hr IVPB Q6HR [facility] Rx#:[id number] Sodium Chloride 0.9% 1, 525 900 000 ml @ 75 mls/hr IV . [id number] [facility] Rx#:[id number] Oral 1790 240 Output: Urine 600 Other: Voiding Method Toilet Toilet Toilet # Voids 1 - Labs CBC & Chem 7: 07/18/17 08:34 07/18/17 08:34 Labs: Abnormal Lab Results - Last 24 Hours (Table) 07/17/17 07/18/17 07/18/17 Range/Units 17:34 07:02 08:34 WBC 10.7 H (3.8-10.6) k/uL RBC 3.82 L (4.30-5.90) m/uL Hgb 12.3 L (13.0-17.5) gm/dL MCV 106.8 H (80.0-100.0) fL MCHC 30.1 L (31.0-37.0) g/dL Plt Count 504 H (150-450) k/uL Neutrophils # 8.8 H (1.3-7.7) k/uL Lymphocytes # 0.9 L (1.0-4.8) k/uL Chloride (98-107) mmol/L BUN (9-20) mg/dL Glucose (74-99) mg/dL POC Glucose (mg/dL) 102 H (75-99) mg/dL Total Protein (6.3-8.2) g/dL Albumin (3.5-5.0) g/dL Influenza Type A RNA Detected H (Not Detectd) 07/18/17 07/18/17 Range/Units 08:34 11:30 WBC (3.8-10.6) k/uL RBC (4.30-5.90) m/uL Hgb (13.0-17.5) gm/dL MCV (80.0-100.0) fL MCHC (31.0-37.0) g/dL Plt Count (150-450) k/uL Neutrophils # (1.3-7.7) k/uL Lymphocytes # (1.0-4.8) k/uL Chloride 97 L (98-107) mmol/L BUN 6 L (9-20) mg/dL Glucose 177 H (74-99) mg/dL POC Glucose (mg/dL) 140 H (75-99) mg/dL Total Protein 5.7 L (6.3-8.2) g/dL Albumin 2.9 L (3.5-5.0) g/dL Influenza Type A RNA (Not Detectd) Microbiology - Last 24 Hours (Table) 07/16/17 23:48 Blood Culture - Preliminary Blood No Growth after 24 hours Assessment and Plan Assessment: Patient continue to have elevated fevers. He was feeling a sore throat and flulike symptoms and had a influenza swab yesterday that was positive. Says his abdominal pain is minimal. No longer requiring IV narcotics. He is tolerating his diet. He had a bowel movement. Drain output minimal. We'll continue diet. Continue IV antibiotics. Home when cleared by medicine as it pertains to his influenza treatment. (1) Diverticular disease of intestine with perforation and abscess Current Visit: Yes Status: Acute Code(s): K57.80 - DVTRCLI OF INTEST, PART UNSP, W PERF AND ABSCESS W/O BLEED SNOMED Code(s): 004450145
[2017-07-18] MEDS: OSELTAMIVIR 75 MG CAP PO SCH ×2 (08:45→21:19)
[2017-07-18] MEDS: PANTOPRAZOLE 40 MG TABLET PO SCH (08:45)
[2017-07-18] MEDS: LISINOPRIL 10 MG TAB PO SCH (08:45)
[2017-07-18 08:52] LABS: Basophils # (A) 0.1 k/uL (0-0.2); Basophils % (A) 1 %; Eosinophils # (A) 0.1 k/uL (0-0.7); Eosinophils % (A) 1 %; HCT 40.9 % (39.0-53.0); HGB 12.3 gm/dL (13.0-17.5); Hypochromasia Slight; Lymphocytes # (A) 0.9 k/uL (1.0-4.8); Lymphocytes % (A) 8 %; MCH 32.2 pg (25.0-35.0); MCHC 30.1 g/dL (31.0-37.0); MCV 106.8 fL (80.0-100.0); Macrocytosis Slight; Mean Platelet Volume 8.2; Monocytes # (A) 0.6 k/uL (0-1.0); Monocytes % (A) 6 %; Neutrophils # (A) 8.8 k/uL (1.3-7.7); Neutrophils % (A) 82 %; Platelet Count 504 k/uL (150-450); RBC 3.82 m/uL (4.30-5.90); RDW 11.6 % (11.5-15.5); WBC 10.7 k/uL (3.8-10.6)
[2017-07-18 09:13] LABS: ALT 25 U/L (21-72); AST 24 U/L (17-59); Albumin 2.9 g/dL (3.5-5.0); Alkaline Phosphatase 50 U/L (38-126); Anion Gap 12 mmol/L; Blood Urea Nitrogen 6 mg/dL (9-20); Calcium 8.6 mg/dL (8.4-10.2); Carbon Dioxide 30 mmol/L (22-30); Chloride 97 mmol/L (98-107); Glucose 177 mg/dL (74-99); Potassium 3.5 mmol/L (3.5-5.1); Sodium 139 mmol/L (137-145); Total Bilirubin 0.2 mg/dL (0.2-1.3); Total Protein 5.7 g/dL (6.3-8.2)
[2017-07-18 11:32] LABS: Glucose,Whole Blood 140 mg/dL (75-99)
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
[2017-07-18] MEDS: diphenhydrAMINE 50 MG/ML 1 ML VIAL IVP PRN ×2 (13:05→19:19)
[2017-07-18 13:24] VITALS: BMI 27.1
--- NOTE | 2017-07-18 13:49 | PN ---
PROGRESS NOTE DATE OF SERVICE: 07/18/2017 REASON FOR FOLLOWUP: 1. Diverticular abscess. 2. Drug rash. 3. Acute influenza. INTERVAL HISTORY: The patient did have a fever of 100.4 this morning, however, was afebrile afterward. He is breathing comfortably. The abdominal pain has improved. Output in the drainage catheter is currently none to minimal. Patient denies having any chest pain or shortness of breath or cough. He did develop a rash with some itching to it is mostly on the trunk area. No difficulty breathing or any tongue swelling. PHYSICAL EXAMINATION: Blood pressure 130/59 with a pulse of 80, temperature of 97.9, he is 96% on room air. General description is an elderly male lying in bed in no distress. RESPIRATORY SYSTEM: Unlabored breathing, clear to auscultation anteriorly. HEART: S1, S2. Regular rate and rhythm. ABDOMEN: Soft, no tenderness. Physical examination did show a generalized maculopapular rash. LABS: Hemoglobin is 12.8, white count 10.7, BUN of 6, creatinine 0.99. DIAGNOSTIC IMPRESSION AND PLAN: 1. Patient with abdominal abscess from ruptured diverticulitis. Repeat CT did show deep collection that was not drained and no change in the size. Because of positive for E coli and anaerobic gram-negative, now with developing a generalized maculopapular rash, likely secondary to Unasyn. We will go ahead and discontinue the Unasyn and start the patient on Rocephin 2 g daily. Continue with oral Flagyl. 2. Patient with acute influenza. He will continue on Tamiflu to finish a 5-day course of therapy. MMODL / IJN: [id number] /
[2017-07-18] MEDS: cefTRIAXone IN SWFI 2,000 MG/20 ML SYRINGE IVP SCH (14:19)
[2017-07-18 17:16] LABS: Glucose,Whole Blood 149 mg/dL (75-99)
[2017-07-18] MEDS: SODIUM CHLORIDE 0.9% 1,000 ML IV SCH ×2 (19:29→21:19)
[2017-07-18 20:24] LABS: Glucose,Whole Blood 125 mg/dL (75-99)
[2017-07-19] MEDS: HYDROcodone/APAP 5-325MG 1 EACH TAB PO PRN ×4 (03:19→20:20)
[2017-07-19 07:13] LABS: Glucose,Whole Blood 94 mg/dL (75-99)
[2017-07-19] MEDS: cefTRIAXone IN SWFI 2,000 MG/20 ML SYRINGE IVP SCH (07:50)
[2017-07-19] MEDS: OSELTAMIVIR 75 MG CAP PO SCH ×2 (07:51→20:21)
[2017-07-19] MEDS: metroNIDAZOLE 500 MG TAB PO SCH ×2 (07:51→18:05)
[2017-07-19] MEDS: PANTOPRAZOLE 40 MG TABLET PO SCH (07:51)
[2017-07-19] MEDS: LISINOPRIL 10 MG TAB PO SCH (07:51)
[2017-07-19 08:36] LABS: Basophils # (A) 0.1 k/uL (0-0.2); Basophils % (A) 1 %; Eosinophils # (A) 0.1 k/uL (0-0.7); Eosinophils % (A) 1 %; HCT 40.3 % (39.0-53.0); Lymphocytes # (A) 1.6 k/uL (1.0-4.8); Lymphocytes % (A) 11 %; MCH 33.5 pg (25.0-35.0); MCHC 32.3 g/dL (31.0-37.0); MCV 103.5 fL (80.0-100.0); Macrocytosis Slight; Mean Platelet Volume 8.2; Monocytes # (A) 0.7 k/uL (0-1.0); Monocytes % (A) 5 %; Neutrophils # (A) 11.3 k/uL (1.3-7.7); Neutrophils % (A) 81 %; Platelet Count 529 k/uL (150-450); RBC 3.89 m/uL (4.30-5.90); RDW 11.7 % (11.5-15.5); WBC 13.9 k/uL (3.8-10.6)
--- NOTE | 2017-07-19 11:20 | P.PN ---
Subjective Progress Note Date: 07/19/17 Principal diagnosis: Diverticulitis Patient still feels flulike symptoms. Denies lower abdominal pain. Some bloating. No nausea. Appetite diminished. Objective - Vital Signs Vital signs: Vital Signs Temp 98.1 F 07/19/17 07:00 Pulse 82 07/19/17 08:00 Resp 16 07/19/17 08:00 BP 163/90 07/19/17 07:00 Pulse Ox 96 07/19/17 07:00 Intake & Output 07/18/17 07/19/17 07/19/17 18:59 06:59 18:59 Intake Total 240 875 Output Total 600 0 Balance -360 875 Weight 90.718 kg Intake: IV 675 Sodium Chloride 0.9% 1, 675 000 ml @ 75 mls/hr IV . [id number] [facility] Rx#:[id number] Oral 240 200 Output: Drainage 0 Abdomen 0 Urine 600 Other: Voiding Method Toilet Toilet Toilet # Voids 1 - Exam Abdomen: Soft, mild distention, no appreciable tenderness, drain intact with minimal output - Labs CBC & Chem 7: 07/19/17 07:44 07/18/17 08:34 Labs: Abnormal Lab Results - Last 24 Hours (Table) 07/18/17 07/18/17 07/18/17 Range/Units 11:30 17:12 20:18 WBC (3.8-10.6) k/uL RBC (4.30-5.90) m/uL MCV (80.0-100.0) fL Plt Count (150-450) k/uL Neutrophils # (1.3-7.7) k/uL POC Glucose (mg/dL) 140 H 149 H 125 H (75-99) mg/dL 07/19/17 Range/Units 07:44 WBC 13.9 H (3.8-10.6) k/uL RBC 3.89 L (4.30-5.90) m/uL MCV 103.5 H (80.0-100.0) fL Plt Count 529 H (150-450) k/uL Neutrophils # 11.3 H (1.3-7.7) k/uL POC Glucose (mg/dL) (75-99) mg/dL Microbiology - Last 24 Hours (Table) 07/16/17 23:48 Blood Culture - Preliminary Blood No Growth after 48 hours Assessment and Plan (1) Diverticular disease of intestine with perforation and abscess Narrative/Plan: Continue antibiotics per infectious disease. Continue Tamiflu for influenza. Diet as tolerated. Anticipate discharge home with drain in place to follow-up in the office 1 week. Current Visit: Yes Status: Acute Code(s): K57.80 - DVTRCLI OF INTEST, PART UNSP, W PERF AND ABSCESS W/O BLEED SNOMED Code(s): 198201669
[2017-07-19 11:53] LABS: Glucose,Whole Blood 125 mg/dL (75-99)
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
[2017-07-19] MEDS: HYDROmorphone 4 MG TABLET PO PRN ×2 (13:20→18:05)
--- NOTE | 2017-07-19 17:00 | XR ---
EXAMINATION TYPE: XR abdomen complete w decub DATE OF EXAM: 07/19/2017 COMPARISON: NONE HISTORY: Abdominal pain TECHNIQUE: 4 views FINDINGS: There are multiple gas-filled loops of large bowel. There is a pigtail drainage catheter in the pelvi s on the left side. I see no sign of free air. Lung bases appear clear of consolidation. There is no pathologic calcifications over the kidneys. IMPRESSION: Large bowel ileus. No free air. No sign of a mechanical bowel obstruction.
[2017-07-19 17:29] LABS: Glucose,Whole Blood 126 mg/dL (75-99)
[2017-07-19] MEDS ORDERED: BISACODYL 10 MG SUPP RECTAL STA (17:31)
[2017-07-19 20:08] LABS: Glucose,Whole Blood 144 mg/dL (75-99)
[2017-07-19] MEDS: ONDANSETRON 4 MG/2 ML VIAL IVP PRN (20:20)
--- NOTE | 2017-07-19 21:35 | PN ---
PROGRESS NOTE DATE OF SERVICE: 07/19/2017 REASON FOR FOLLOWUP: 1. Acute diverticulitis with diverticular abscess. 2. Acute influenza A. 3. Drug rash. INTERVAL HISTORY: The patient is afebrile, has been breathing comfortably. He has been complaining of more epigastric especially after he eats. No nausea. No vomiting. No diarrhea: Overall rash intensity after taking Zosyn yesterday. PHYSICAL EXAMINATION: Blood pressure is 158/86, pulse of 82, temperature of 98.5. He is 97% on room air. General description is an elderly male lying in bed in no distress. RESPIRATORY SYSTEM: Unlabored breathing. Clear to auscultation anteriorly. HEART: S1, S2. Regular rate and rhythm. No rigidity. EXAMINATION OF THE RASH: Decreased in intensity. LABS: Hemoglobin 13, white count 13.9. DIAGNOSTIC IMPRESSION AND PLAN: 1. Patient with abdominal abscess from ruptured diverticulitis, status post drainage. Repeat CT did show overall resolution of the upper abscess that was drained. CT of the right lower deep abscess was about the same size. Culture has been positive for an E coli and anaerobic Gram-negative. Patient who developed a rash to Zosyn, currently on Rocephin and Flagyl. That will be continued; however, the patient continues to improve. Recommend finishing therapy with oral Cipro and Flagyl for [address] at the end of therapy to make sure of resolution of that abscess. 2. Patient with acute influenza, for which the plan will be to continue on Tamiflu 75 b.i.d. to finish a 5-day course of therapy. MMODL / IJN: [id number] /
[2017-07-20] MEDS: metroNIDAZOLE 500 MG TAB PO SCH ×2 (00:52→08:47)
[2017-07-20] MEDS: HYDROcodone/APAP 5-325MG 1 EACH TAB PO PRN ×2 (04:56→08:54)
[2017-07-20 07:55] LABS: Glucose,Whole Blood 139 mg/dL (75-99)
[2017-07-20 08:02] LABS: Basophils % (A) 0 %; Eosinophils # (A) 0.1 k/uL (0-0.7); Eosinophils % (A) 0 %; HCT 42.5 % (39.0-53.0); HGB 13.4 gm/dL (13.0-17.5); Lymphocytes # (A) 0.9 k/uL (1.0-4.8); Lymphocytes % (A) 4 %; MCH 32.5 pg (25.0-35.0); MCHC 31.5 g/dL (31.0-37.0); MCV 103.1 fL (80.0-100.0); Macrocytosis Slight; Mean Platelet Volume 7.9; Monocytes # (A) 0.7 k/uL (0-1.0); Monocytes % (A) 3 %; Neutrophils # (A) 19.8 k/uL (1.3-7.7); Neutrophils % (A) 91 %; Platelet Count 516 k/uL (150-450); RBC 4.13 m/uL (4.30-5.90); RDW 11.8 % (11.5-15.5); WBC 21.7 k/uL (3.8-10.6)
[2017-07-20] MEDS: cefTRIAXone IN SWFI 2,000 MG/20 ML SYRINGE IVP SCH (08:47)
[2017-07-20] MEDS: LISINOPRIL 10 MG TAB PO SCH (08:47)
[2017-07-20] MEDS: PANTOPRAZOLE 40 MG TABLET PO SCH (08:47)
[2017-07-20] MEDS: OSELTAMIVIR 75 MG CAP PO SCH (08:47)
--- NOTE | 2017-07-20 09:05 | XR ---
EXAMINATION TYPE: XR abdomen complete w decub DATE OF EXAM: 07/20/2017 COMPARISON: 07/19/2017 HISTORY: Abdominal pain TECHNIQUE: Supine, upright, and left side down lateral decubitus views of the abdomen are obtained. FINDINGS: Markedly dilated small bowel loops with air-fluid levels. Drainage catheter in the pelvis. Hypertrophic and degenerative changes spine. Subsegmental consolidation at both lung bases. IMPRESSION: 1. Markedly dilated bowel loops with air-fluid levels. Differential includes partial obstruction vers us ileus. 2. Drainage catheter in the pelvis.
--- NOTE | 2017-07-20 11:33 | P.PN ---
<Mony Adamsne M - Last Filed: 07/20/17 12:10> Subjective Progress Note Date: 07/20/17 71-year-old male seen and examined this morning. States continues to have body aches no energy level continues to have loose stools. Patient states the abdomen feels less discomfort remains distended White count is up to 21 temp this morning 99 abdomen remains firm few hypoactive bowel tones heart rate in the 80s catheter in the pelvis scant amount of creamy secretions noted in the drainage bag abdominal x-ray done this morning show markedly dilated bowel loops with air- fluid levels differential partial small bowel versus ileus. Drainage catheter remains in the pelvis. Objective - Vital Signs Vital signs: Vital Signs Temp 99.1 F 07/20/17 07:00 Pulse 82 07/20/17 08:00 Resp 18 07/20/17 08:00 BP 124/68 07/20/17 07:00 Pulse Ox 94 L 07/20/17 07:00 Intake & Output 07/19/17 07/20/17 07/20/17 18:59 06:59 18:59 Intake Total 300 200 237 Output Total 2 0 1 Balance 298 200 236 Weight 90.718 kg 90.718 kg Intake: Intake, IV Titration 300 Amount Sodium Chloride 0.9% 1, 300 000 ml @ 75 mls/hr IV . [id number] [facility] Rx#:[id number] Oral 200 237 Output: Drainage 0 0 Abdomen 0 0 Stool 2 1 Other: Voiding Method Toilet Toilet Toilet # Voids 2 # Bowel Movements 1 - Exam physical exam 71-year-old male sitting up in bed watching TV does not appear in any acute distress reports no nausea vomiting states abdominal discomfort slightly improved. Lungs adequate air movement bilaterally sats are 94% on room air Heart S1-S2 audible regular Abdomen firm distended few hypoactive bowel tones catheter draining scant amount milky green secretions reports having frequent loose stools states no nausea sensation Extremities no edema noted - Labs CBC & Chem 7: 07/20/17 07:17 07/18/17 08:34 Labs: Abnormal Lab Results - Last 24 Hours (Table) 07/19/17 07/19/17 07/19/17 Range/Units 11:52 17:23 20:07 WBC (3.8-10.6) k/uL RBC (4.30-5.90) m/uL MCV (80.0-100.0) fL Plt Count (150-450) k/uL Neutrophils # (1.3-7.7) k/uL Lymphocytes # (1.0-4.8) k/uL POC Glucose (mg/dL) 125 H 126 H 144 H (75-99) mg/dL 07/20/17 07/20/17 Range/Units 07:17 07:22 WBC 21.7 H (3.8-10.6) k/uL RBC 4.13 L (4.30-5.90) m/uL MCV 103.1 H (80.0-100.0) fL Plt Count 516 H (150-450) k/uL Neutrophils # 19.8 H (1.3-7.7) k/uL Lymphocytes # 0.9 L (1.0-4.8) k/uL POC Glucose (mg/dL) 139 H (75-99) mg/dL Microbiology - Last 24 Hours (Table) 07/16/17 23:48 Blood Culture - Preliminary Blood No Growth after 72 hours Assessment and Plan Assessment: Impression 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 Resolving Status post percutaneous drain pelvic abscess with cultures positive E. coli Febrile with leukocytosis likely due to influenza A Markedly dilated bowel loops with air-fluid levels likely due to partial obstruction or ileus not ruled out with persistent abdominal distention Plan Repeat computed tomography scan abdomen pelvis with contrast follow up on results with further surgical recommendations pending Tamiflu per medicine service defer to Pain control Antibiotics per infectious disease defer to DVT and GI prophylaxis Will follow with you Inserted nasogastric tube now monitor the response Dictating progress note for Dr. Durand rounding on behalf of Dr. Jamison The above impression and plan of care have been discussed and directed by signing physician. Marily Adams nurse practitioner acting as scribe for signing physician. <Norma Durand - Last Filed: 07/25/17 04:39> Objective - Vital Signs Vital signs: Vital Signs Temp 99.8 F H 07/24/17 23:00 Pulse 90 07/24/17 23:00 Resp 20 07/24/17 23:00 BP 165/98 07/24/17 23:00 Pulse Ox 93 L 07/24/17 23:00 Intake & Output 07/24/17 07/24/17 07/25/17 06:59 18:59 06:59 Intake Total 200 300 Output Total 804 661 6265 Balance -50 -500 -760 Weight 90.718 kg Intake: Oral 200 300 Output: Drainage 50 60 Left Lower Abdomen 50 60 Urine 749 [id number] Other: Voiding Method Urinal Urinal # Voids 1 # Bowel Movements 0 - Labs CBC & Chem 7: 07/24/17 07:57 07/24/17 07:57 Labs: Abnormal Lab Results - Last 24 Hours (Table) 07/24/17 07/24/17 07/24/17 Range/Units 07:57 07:57 07:57 WBC 15.3 H (3.8-10.6) k/uL RBC 3.53 L (4.30-5.90) m/uL Hgb 11.5 L (13.0-17.5) gm/dL Hct 36.5 L (39.0-53.0) % MCV 103.5 H (80.0-100.0) fL Plt Count 587 H (150-450) k/uL Neutrophils # 13.1 H (1.3-7.7) k/uL Sodium 146 H (137-145) mmol/L Potassium 3.1 L (3.5-5.1) mmol/L Chloride 112 H (98-107) mmol/L Glucose 128 H (74-99) mg/dL POC Glucose (mg/dL) (75-99) mg/dL Phosphorus 2.3 L (2.5-4.5) mg/dL Total Protein 4.9 L (6.3-8.2) g/dL Albumin 2.2 L (3.5-5.0) g/dL 07/24/17 07/24/17 07/24/17 Range/Units 12:45 17:15 23:51 WBC (3.8-10.6) k/uL RBC (4.30-5.90) m/uL Hgb (13.0-17.5) gm/dL Hct (39.0-53.0) % MCV (80.0-100.0) fL Plt Count (150-450) k/uL Neutrophils # (1.3-7.7) k/uL Sodium (137-145) mmol/L Potassium (3.5-5.1) mmol/L Chloride (98-107) mmol/L Glucose (74-99) mg/dL POC Glucose (mg/dL) 129 H 183 H 155 H (75-99) mg/dL Phosphorus (2.5-4.5) mg/dL Total Protein (6.3-8.2) g/dL Albumin (3.5-5.0) g/dL Microbiology - Last 24 Hours (Table) 07/22/17 12:07 Gram Stain - Final Peritoneal Fluid Wound Culture - Final Betty albicans 07/22/17 12:07 Gram Stain - Final Peritoneal Fluid Wound Culture - Final Pseudomonas aeruginosa Betty albicans 07/22/17 12:07 Anaerobic Culture - Preliminary Peritoneal Fluid Assessment and Plan (1) Small bowel obstruction due to adhesions Current Visit: Yes Status: Acute Code(s): K56.50 - INTESTNL ADHESIONS, UNSP TO PARTIAL VERSUS COMPLETE OBST SNOMED Code(s): 058481512 (2) Diverticular disease of intestine with perforation and abscess Current Visit: Yes Status: Acute Code(s): K57.80 - DVTRCLI OF INTEST, PART UNSP, W PERF AND ABSCESS W/O BLEED SNOMED Code(s): 320011919
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
--- NOTE | 2017-07-20 11:54 | XR ---
EXAMINATION TYPE: XR chest 1V portable DATE OF EXAM: 07/20/2017 COMPARISON: NONE HISTORY: NG tube placement TECHNIQUE: Single frontal view of the chest is obtained. FINDINGS: Heart size is enlarged. Atherosclerotic change aorta. Left lower lobe infiltrate and small effusion. No overt failure or pneumothorax. The NG tube is coiled left abdomen and likely within the gastric body. IMPRESSION: NG tube appears in good position.
[2017-07-20] MEDS ORDERED: RX INFO: IV CONTRAST WAS GIVEN 1 EACH MISC MISCELLANE PRN (12:08)
[2017-07-20] MEDS ORDERED: ACETAMINOPHEN IV (For NPO) 1,000 MG in EMPTY BAG 1 BAG IVPB PRN (12:53)
[2017-07-20] MEDS ORDERED: HYDROmorphone 0.5 MG/0.5 ML SYRINGE IVP PRN (12:54)
[2017-07-20] MEDS: SODIUM CHLORIDE 0.9% 1,000 ML IV SCH ×4 (12:57→21:28)
[2017-07-20] MEDS ORDERED: HYDROmorphone 4 MG TABLET PO PRN (13:04)
[2017-07-20] MEDS: MORPHINE SULFATE 4 MG/ML SYRINGE IVP PRN ×3 (15:15→21:27)
--- NOTE | 2017-07-20 15:15 | CT ---
EXAMINATION TYPE: CT abdomen pelvis wo con DATE OF EXAM: 07/20/2017 COMPARISON: Prior CT abdomen pelvis 07/17/2017 and 07/10/2017 HISTORY: Ileus versus bowel obstruction. CT DLP: 833.9 mGycm Automated exposure control for dose reduction was used. TECHNIQUE: Helical acquisition of images from the lung bases through the pelvis. FINDINGS: NG tube shows the distal tip within the stomach. LUNG BASES: Some minimal dependent atelectatic changes are present at the posterior lung bases, minim al pleural fluid suspected. AORTA: No significant abnormality is appreciated. LIVER/GB: No significant abnormality is appreciated. PANCREAS: No significant abnormality is seen. SPLEEN: Small splenules are present as on prior.. ADRENALS: No significant abnormality is seen. KIDNEYS: Left kidney not seen. REPRODUCTIVE ORGANS: No significant abnormality is seen. URINARY BLADDER: No significant abnormality is seen. BOWEL: There is extensive small large bowel dilation with fluid-filled appearance. In the left lowe r quadrant there is inflammatory change noted. At the level of the sigmoid colon anteriorly the drain age catheter is in place however in a more cephalad location, there is a focal soft tissue area which is extraluminal measuring 5 cm in greatest dimension with nondependent air compatible with an additi onal interloop abscess immediately anterior to the left psoas muscle with some surrounding inflammato ry change, local bowel shows wall thickening. There is a caliber change of the small bowel at this le edda. No evident free air ASCITES: None visible. PELVIC ADENOPATHY: None visualized. RETROPERITONEAL ADENOPATHY: No Retroperitoneal Adenopathy visible. OSSEOUS STRUCTURES: No significant abnormality is seen. IMPRESSION: THE ABSCESS NOTED ON PRIOR CT SCANS MAY HAVE INCREASED IN SIZE COMPARED TO PREVIOUS EXAM 07/10/2017. IN FLAMMATORY CHANGE TO THE SMALL BOWEL HAS PROGRESSED IN THE INTERVAL, SMALL BOWEL WALL THICKENING AND CALIBER CHANGE OF SMALL BOWEL IS PRESENT AT THIS LEVEL WHICH COULD BE INDICATIVE OF A PARTIAL OBSTRUC TION, ILEUS STILL WITHIN THE DIFFERENTIAL. NONCONTRAST EXAM.
[2017-07-20] MEDS: metroNIDAZOLE-NS PMX 500 MG in SALINE 1 100ML.BAG IVPB SCH (15:18)
[2017-07-20] MEDS: OSELTAMIVIR 60 MG/10 ML ORAL SYRINGE PO SCH (21:28)
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
--- NOTE | 2017-07-20 21:51 | PN ---
PROGRESS NOTE DATE OF SERVICE: 07/20/2017. REASON FOR FOLLOWUP: Abdominal abscess diverticulitis. INTERVAL HISTORY: The patient is afebrile. His abdominal pain has slightly improved. He has been tolerating his soft diet. No nausea, vomiting, or any diarrhea. PHYSICAL EXAMINATION: On admission blood pressure 146/70 with a pulse of 82, temperature of 98.8. He is 93% on room air. General description is an elderly male up in the bed, up in no distress. Respiratory system: Unlabored breathing. Decreased breath sounds in the bases. No wheeze. Heart S1, S2. Regular rate and rhythm. Abdomen soft, mildly distended. No guarding or rigidity. LABS: Hemoglobin is 13.4, white count of 21.7 with a BUN of 11, creatinine 1.63. DIAGNOSTIC IMPRESSION AND PLAN: 1. Patient with abdominal abscess from ruptured diverticulitis, now with sudden jump in his white count. He was having more pain in abdominal area. A CT abdominal and pelvis has been ordered which is have shown worsening of his the deep pelvic abscess with a component of ileus. Surgery is on the case. The patient will be kept on Rocephin and Flagyl in view of the ALLERGIC REACTION TO [place]. 2. Acute influenza A for which the patient to continue on Tamiflu to finish a 5-day course of therapy. MMODL / IJN: [id number] /
[2017-07-20] MEDS: ACETAMINOPHEN IV (For NPO) 1,000 MG in EMPTY BAG 1 BAG IVPB SCH (23:50)
[2017-07-21] MEDS: metroNIDAZOLE-NS PMX 500 MG in SALINE 1 100ML.BAG IVPB SCH ×3 (00:21→15:44)
[2017-07-21] MEDS: MORPHINE SULFATE 4 MG/ML SYRINGE IVP PRN ×5 (03:37→20:01)
[2017-07-21] MEDS: ACETAMINOPHEN IV (For NPO) 1,000 MG in EMPTY BAG 1 BAG IVPB SCH ×4 (06:10→23:24)
[2017-07-21] MEDS: OSELTAMIVIR 60 MG/10 ML ORAL SYRINGE PO SCH ×2 (08:26→21:06)
[2017-07-21] MEDS: PANTOPRAZOLE 40 MG/10 ML VIAL IVP SCH (08:26)
[2017-07-21] MEDS: cefTRIAXone IN SWFI 2,000 MG/20 ML SYRINGE IVP SCH (08:26)
[2017-07-21] MEDS: LISINOPRIL 10 MG TAB PO SCH (08:26)
[2017-07-21] MEDS: SODIUM CHLORIDE 0.9% 1,000 ML IV SCH ×2 (08:26→20:05)
[2017-07-21 08:38] LABS: Basophils % (A) 0 %; Eosinophils % (A) 0 %; HCT 40.7 % (39.0-53.0); HGB 13.2 gm/dL (13.0-17.5); Lymphocytes # (A) 0.9 k/uL (1.0-4.8); Lymphocytes % (A) 4 %; MCH 33.2 pg (25.0-35.0); MCHC 32.3 g/dL (31.0-37.0); MCV 102.6 fL (80.0-100.0); Mean Platelet Volume 8.4; Monocytes # (A) 0.7 k/uL (0-1.0); Monocytes % (A) 4 %; Neutrophils % (A) 91 %; Platelet Count 491 k/uL (150-450); RBC 3.97 m/uL (4.30-5.90); RDW 11.9 % (11.5-15.5); WBC 20.9 k/uL (3.8-10.6)
[2017-07-21 08:56] LABS: ALT 22 U/L (21-72); AST 18 U/L (17-59); Albumin 2.8 g/dL (3.5-5.0); Alkaline Phosphatase 65 U/L (38-126); Anion Gap 13 mmol/L; Blood Urea Nitrogen 12 mg/dL (9-20); Carbon Dioxide 24 mmol/L (22-30); Chloride 104 mmol/L (98-107); Glucose 120 mg/dL (74-99); Potassium 3.9 mmol/L (3.5-5.1); Sodium 141 mmol/L (137-145); Total Bilirubin 0.4 mg/dL (0.2-1.3); Total Protein 5.8 g/dL (6.3-8.2)
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
--- NOTE | 2017-07-21 13:29 | XR ---
2 view abdomen HISTORY: Diverticulitis, abscess, bowel obstruction 2 views of the abdomen submitted and correlated to prior CT and plain film dated 07/20/2017 NG tube tip remains in the left upper quadrant. Multiple gas distended loops of small and large bowel are present with associated air-fluid levels, descending colon is decompressed. Surgical drain again noted in the lower abdomen, catheter configuration is changed and is somewhat unwound on current exa m. No evident pneumoperitoneum. IMPRESSION: Correlate for bowel obstruction. See dictated report CT 07/20/2017
--- NOTE | 2017-07-21 17:37 | PN ---
PROGRESS NOTE DATE OF SERVICE: 07/21/2017 A 71-year-old male patient who was admitted for acute diverticular disease with perforations and multiple abscesses who developed abdominal ileus. The patient seen in room 424. The patient is awake and alert, feels like abdominal distention is worse than before. He is in mild distress. VITAL SIGNS: Temperature 98.6, pulse 82, respirations 18, blood pressure 126/64, O2 saturation 93%. HEENT: Atraumatic, normocephalic. Pupils equal and reactive to light. Extraocular movements intact. Buccal mucosa is moist. Neck is supple. No goiter or lymphadenopathy. JVD is negative. No carotid bruit heard. Lungs are clear to auscultate. No rales, rhonchi or wheezes. Heart is regular rate and rhythm without any murmurs, gallop rhythm. Abdomen is firm and distended. Bowel sounds are hypoactive. Patient has diffuse mild tenderness. Patient still has NG tube in place with low intermittent suctioning. EXTREMITIES: No edema, clubbing cyanosis. LAB: CBC: White blood count of 20.9, hemoglobin 13.2, hematocrit 40.1 and platelet count of 191. Chemical profile: Sodium 141, potassium 3.9, chloride 104, bicarb 24, BUN 12, creatinine 1.07, glucose 120. ASSESSMENT: 1. Acute diverticulitis with intestinal perforation and multiple abscesses. 2. Status post percutaneous drainage of pelvic abscess with culture positive for Escherichia coli. 3. Abdominal ileus/mechanical small-bowel obstruction. 4. Positive influenza A. 5. Leukocytosis secondary to diverticulitis and abscess formation. 6. Acute renal injury. 7. Hypertension. 8. Nicotine dependence. PLAN: Continue with IV fluids. Monitor I's and O's. Continue with NG tube. General Surgery is following. ID is following and recommending changes in antibiotics. Patient continues on Tamiflu. Pain control per General Surgery. Continue with GI and DVT prophylaxis. Resume current medications and current plan of care. MMODL / IJN: [id number] /
--- NOTE | 2017-07-21 20:04 | PN ---
PROGRESS NOTE DATE OF SERVICE: 07/21/2017 REASON FOR FOLLOWUP: 1. Abdominal abscess from ruptured diverticulitis. 2. Patient with acute influenza. INTERVAL HISTORY: The patient's fever pattern has improved. Still having some bowel pain and distention and some hematochezia. He did have the NG because of his a small-bowel ileus/obstruction. Denies having any chest pain or shortness of breath or cough. EXAMINATION: Blood pressure is 143/78, pulse of 82, temperature of 98. He is 97% on room air. General description is an elderly male lying in bed in no distress. RESPIRATORY SYSTEM: Unlabored breathing. Clear to auscultation anteriorly. HEART: S1, S2. Regular rate and rhythm. ABDOMEN: Soft. Mildly distended. Tender to touch. EXTREMITIES: No edema of the feet. LABS: Hemoglobin 13.2, white count 28.9 with a BUN of 12, creatinine 1.07. DIAGNOSTIC IMPRESSION AND PLAN: 1. Patient with abdominal abscess, status post CT-guided drainage with a culture positive for Escherichia coli and anaerobic gram-negative bacilli, now with fever, small-bowel ileus and a deeper abscess collection that may benefit from a surgical drainage of the same. Surgery is on the case. The patient is currently on Rocephin and Flagyl because of a rash to the Unasyn. 2. Acute influenza. The patient to finish a 5-day course of Tamiflu. Continue supportive care. MMODL / IJN: [id number] /
[2017-07-22] MEDS: metroNIDAZOLE-NS PMX 500 MG in SALINE 1 100ML.BAG IVPB SCH ×4 (00:03→23:47)
[2017-07-22] MEDS: MORPHINE SULFATE 4 MG/ML SYRINGE IVP PRN ×2 (05:19→20:14)
[2017-07-22] MEDS: ACETAMINOPHEN IV (For NPO) 1,000 MG in EMPTY BAG 1 BAG IVPB SCH ×3 (05:20→17:58)
[2017-07-22] MEDS: SODIUM CHLORIDE 0.9% 1,000 ML IV SCH ×5 (05:21→23:48)
[2017-07-22] MEDS: OSELTAMIVIR 60 MG/10 ML ORAL SYRINGE PO SCH (07:49)
[2017-07-22] MEDS: LISINOPRIL 10 MG TAB PO SCH (07:49)
[2017-07-22] MEDS: PANTOPRAZOLE 40 MG/10 ML VIAL IVP SCH (07:49)
--- NOTE | 2017-07-22 07:52 | P.PN ---
Subjective Progress Note Date: 07/22/17 Patient is a 71-year-old male with history of perforated diverticulitis including previous trauma laparotomy. He has developed bowel obstruction. Despite conservative measures, his pain continues as well as bowel obstruction continues. Reports moderate abdominal pain. No passage of flatus. Objective - Vital Signs Vital signs: Vital Signs Temp 97.8 F 07/22/17 07:00 Pulse 87 07/22/17 07:00 Resp 22 07/22/17 07:00 BP 158/86 07/22/17 07:00 Pulse Ox 95 07/22/17 07:00 Intake & Output 07/21/17 07/22/17 07/22/17 18:59 06:59 18:59 Intake Total 1200 Output Total 3 Balance 1197 Weight 90.718 kg Intake: Intake, IV Titration 1200 Amount ACETAMINOPHEN IV (For NPO 400 ) 1,000 mg In Empty Bag 1 bag @ 400 mls/hr IVPB Q6HR JAKE Rx#:[id number] Sodium Chloride 0.9% 1, 700 000 ml @ 100 mls/hr IV . Q10H JAKE Rx#:[id number] metroNIDAZOLE-NS PMX 500 100 mg In Saline 1 100ml.bag @ 100 mls/hr IVPB Q8HR JAKE Rx#:[id number] Output: Stool 3 Other: Voiding Method Toilet Toilet # Voids 3 # Bowel Movements 2 - Exam GENERAL: Well developed and in no acute distress. Pleasant. HEENT: No sclera icterus. Extraocular movements grossly intact. Moist buccal mucosa. Head is atraumatic, normocephalic. Hears conversational speech. No nasal drainage. NECK: Supple without lymphadenopathy. CHEST: Non-labored respirations and equal bilateral excursions. CARDIOVASCULAR: Regular rate and rhythm. Palpable 2+ radial pulses. ABDOMEN: Distended. Diffusely tender. No peritonitis. MUSCULOSKELETAL: No clubbing, cyanosis or edema. NEUROLOGIC: No focal or lateralizing signs. PSYCH: Appropriate affect. Alert and oriented to person, place and time. SKIN: Good skin turgor. Well perfused. - Labs CBC & Chem 7: 07/21/17 07:58 07/21/17 07:58 Labs: Abnormal Lab Results - Last 24 Hours (Table) 07/21/17 07/21/17 Range/Units 07:58 07:58 WBC 20.9 H (3.8-10.6) k/uL RBC 3.97 L (4.30-5.90) m/uL MCV 102.6 H (80.0-100.0) fL Plt Count 491 H (150-450) k/uL Neutrophils # 19.0 H (1.3-7.7) k/uL Lymphocytes # 0.9 L (1.0-4.8) k/uL Glucose 120 H (74-99) mg/dL Total Protein 5.8 L (6.3-8.2) g/dL Albumin 2.8 L (3.5-5.0) g/dL Microbiology - Last 24 Hours (Table) 07/16/17 23:48 Blood Culture - Preliminary Blood No Growth after 120 hours - Imaging and Cardiology CT scan - abdomen: report reviewed, image reviewed CT scan - pelvis: report reviewed, image reviewed (Findings consistent with perforated diverticulitis and: Bowel obstruction.) Assessment and Plan (1) Small bowel obstruction due to adhesions Current Visit: Yes Status: Acute Code(s): K56.50 - INTESTNL ADHESIONS, UNSP TO PARTIAL VERSUS COMPLETE OBST SNOMED Code(s): 575566637 (2) Diverticular disease of intestine with perforation and abscess Current Visit: Yes Status: Acute Code(s): K57.80 - DVTRCLI OF INTEST, PART UNSP, W PERF AND ABSCESS W/O BLEED SNOMED Code(s): 057121099 Plan: 1. He has had protracted hospital course, his condition continues to decline. I recommend exploratory laparotomy with possible colostomy as well as lysis of adhesions. Benefits and risks of the procedure were described in detail. Patient and family members had agreed to proceed.
[2017-07-22] MEDS: cefTRIAXone IN SWFI 2,000 MG/20 ML SYRINGE IVP SCH (08:36)
[2017-07-22 09:01] LABS: ALT 20 U/L (21-72); AST 23 U/L (17-59); Albumin 2.9 g/dL (3.5-5.0); Alkaline Phosphatase 63 U/L (38-126); Anion Gap 14 mmol/L; Blood Urea Nitrogen 11 mg/dL (9-20); Carbon Dioxide 22 mmol/L (22-30); Chloride 106 mmol/L (98-107); Glucose 133 mg/dL (74-99); Potassium 3.7 mmol/L (3.5-5.1); Sodium 142 mmol/L (137-145); Total Bilirubin 0.5 mg/dL (0.2-1.3); Total Protein 5.9 g/dL (6.3-8.2)
[2017-07-22 09:06] LABS: Basophils % (A) 0 %; Eosinophils # (A) 0.1 k/uL (0-0.7); Eosinophils % (A) 0 %; HCT 39.7 % (39.0-53.0); HGB 12.5 gm/dL (13.0-17.5); Lymphocytes # (A) 1.2 k/uL (1.0-4.8); Lymphocytes % (A) 6 %; MCH 32.9 pg (25.0-35.0); MCHC 31.5 g/dL (31.0-37.0); MCV 104.2 fL (80.0-100.0); Macrocytosis Slight; Mean Platelet Volume 8.3; Monocytes # (A) 0.7 k/uL (0-1.0); Monocytes % (A) 4 %; Neutrophils # (A) 18.2 k/uL (1.3-7.7); Neutrophils % (A) 89 %; Platelet Count 513 k/uL (150-450); RDW 11.9 % (11.5-15.5); WBC 20.4 k/uL (3.8-10.6)
[2017-07-22] MEDS ORDERED: GLYCOPYRROLATE 0.2 MG/ML 2 ML VIAL ONE (11:09)
[2017-07-22] MEDS ORDERED: LACTATED RINGERS 1,000 ML IV ONE ×6 (11:09→15:14)
[2017-07-22] MEDS ORDERED: HYDROmorphone (PF) 1 MG/ML ONE (11:09)
[2017-07-22] MEDS ORDERED: fentaNYL (PF) 50 MCG/ML 2 ML AMP ONE (11:09)
[2017-07-22] MEDS ORDERED: SUCCINYLCHOLINE CHLORIDE 100 MG/5 ML SYR IV ONE (11:09)
[2017-07-22] MEDS ORDERED: PROPOFOL 10 MG/ML 20 ML VIAL IV ONE (11:09)
[2017-07-22] MEDS ORDERED: LIDOCAINE 1% INJ 10MG/ML (20 ML MDV) ONE (11:09)
[2017-07-22] MEDS ORDERED: MIDAZOLAM 2 MG/2 ML VIAL ONE (11:09)
[2017-07-22] MEDS ORDERED: PHENYLEPHRINE-0.9% NACL SYG 1 MG/10 ML SYRINGE ONE (11:09)
[2017-07-22] MEDS ORDERED: NEOSTIGMINE 1 MG/ML 10 ML VIAL ONE (11:09)
[2017-07-22] MEDS ORDERED: ROCURONIUM BROMIDE 10 MG/ML 10 ML VIAL IV ONE (11:09)
[2017-07-22] MEDS ORDERED: HYDROmorphone PCA 5 MG/25 ML SYRINGE IV PRN (14:04)
[2017-07-22] MEDS: HYDROmorphone 0.5 MG/0.5 ML SYRINGE IVP ONE ×4 (14:05→14:36)
[2017-07-22] MEDS: diphenhydrAMINE 50 MG/ML 1 ML VIAL IVP PRN (14:05)
[2017-07-22] MEDS ORDERED: KETOROLAC 30 MG/ML 1 ML VIAL IVP ONE (14:11)
--- NOTE | 2017-07-22 14:18 | P.PCN ---
Date of Procedure: 07/22/17 Preoperative Diagnosis: Small bowel obstruction, peritoneal adhesions, sigmoid diverticulitis. Postoperative Diagnosis: Same, peritoneal adhesions, intra-abdominal abscess Procedure(s) Performed: 1. Exploratory laparotomy 2. Extensis lysis of adhesions 3. Open drainage of contained left lower quadrant intra-peritoneal abscess, over 50-mL 4. Removal of IR drain 5. Abdominal lavage 3-L 6. Placement of #19 round drain left lower quadrant/pelvis. Anesthesia: GETA, local Surgeon: Norma Durand Learning And Development Director #1: Ebonie Noland Estimated Blood Loss (ml): 50 Pathology: other (peritoneal abscess) Condition: stable Disposition: floor Operative Findings: 1. Multiple peritoneal adhesions involving greater omentum to abdominal wall with multiple internal hernias identified and divided. 2. Severe adhesions involving the left upper quadrant. 3. Phlegmon of the left lower quadrant with contained abscess, over 50-mL drained. 4. IR drain in separate location from contained intra-abdominal abscess and removed secondary to malposition. 5. Dense concrete-like inflammation with adhesions involving sigmoid colon. 6. Moderately dilated small bowel over 7 cm decompressed after relieving small bowel obstruction involving left lower quadrant phlegmon. 7. NGT changed secondary to malfunction and poor position. 8. Over 1.5 L over effluent suctioned from NGT after relieving small bowel obstruction. 9. NGT positioned with tip along distal stomach 10. Cultures of peritoneal abscess obtained.
[2017-07-22] MEDS ORDERED: METOPROLOL TARTRATE 5 MG/5 ML VIAL IVP ONE (14:22)
[2017-07-22] MEDS ORDERED: hydrALAZINE HCL 20 MG/ML 1 ML VIAL IVP ONE (14:45)
[2017-07-22 14:50] LABS: Anion Gap 13 mmol/L; Blood Urea Nitrogen 11 mg/dL (9-20); Calcium 8.6 mg/dL (8.4-10.2); Carbon Dioxide 21 mmol/L (22-30); Chloride 109 mmol/L (98-107); Glucose 123 mg/dL (74-99); Potassium 3.8 mmol/L (3.5-5.1); Sodium 143 mmol/L (137-145)
[2017-07-22] MEDS: fentaNYL (PF) 50 MCG/ML 2 ML AMP IVP ONE ×2 (14:53→15:00)
[2017-07-22] MEDS: KETOROLAC 30 MG/ML 1 ML VIAL IVP SCH ×2 (15:39→20:06)
--- NOTE | 2017-07-22 17:47 | PN ---
PROGRESS NOTE DATE OF SERVICE: 07/22/2017 REASON FOR FOLLOWUP: 1. Abdominal abscess. 2. Acute influenza. INTERVAL HISTORY: The patient was taken to the OR this morning for small-bowel obstruction and sigmoid diverticulosis with an abscess. The patient is status post exploratory laparotomy with lysis of adhesion, drainage of the anterior lower quadrant abscess. The patient seen in the postop area, where the patient was recovering from anesthesia. He has been afebrile. Denies having any chest pain. Some abdominal pain, pain medication. No nausea, no vomiting. EXAMINATION: Blood pressure is 111/51 with a pulse of 86, temperature of 98.5. He is 92% on room air. General description is an elderly male lying in bed in no distress. RESPIRATORY SYSTEM: Unlabored breathing. Clear to auscultation anteriorly. HEART: S1, S2. Regular rate and rhythm. ABDOMEN: Soft. Slight distention. No guarding or rigidity. EXTREMITIES: No edema of feet. LABS: Hemoglobin is 12.5, white count 20.4 with a BUN of 11, creatinine 0.91. DIAGNOSTIC IMPRESSION AND PLAN: Patient with abdominal abscess from diverticulitis with complicated small-bowel ileus, has been taken to the OR, status post drainage of the abscess and lysis of adhesions. Cultures have been obtained. Those will be followed. The patient will be continued on Rocephin and Flagyl in view of the ALLERGY TO UNASYN, adjusting further based on the clinical response and cultures. MMODL / IJN: [id number] /
--- NOTE | 2017-07-23 00:02 | PN ---
PROGRESS NOTE DATE OF SERVICE: 07/22/2017 Patient was taken to OR this morning for a small-bowel obstruction and sigmoid diverticulosis with abscesses. The patient has had both exploratory laparotomy with lysis of adhesion, open drainage in the left lower quadrant for intraperitoneal abscess and removal of IR drain, abdominal lavage. VITAL SIGNS: Temperature of 98.5, pulse 86, respirations 18, blood pressure 111/51, O2 saturation 96% on room air. HEENT: Atraumatic, normocephalic. Pupils equal and reactive to light. Extraocular movements intact. Buccal mucosa is fair. Neck is supple. No goiter or lymphadenopathy. JVD is negative. No carotid bruit heard. LUNGS: Clear to auscultate. No rales, rhonchi or wheezing. Heart is regular rate and rhythm without any murmur or gallops rhythm. Abdomen is soft, slightly distended. No guarding or rigidity. EXTREMITIES: No edema, clubbing or cyanosis. LABS: CBC: White blood count of 20.3, hemoglobin 12.5, hematocrit 39.7 and platelet count of 513. Chemical profile: Sodium 142, potassium 3.8, chloride 109, bicarb 29, BUN 11, creatinine 0.91 and glucose of 123. ASSESSMENT: 1. Status post operating room with exploratory laparotomy as indicated above. 2. Acute diverticulitis with intestinal perforation, multiple abscesses. 3. Status post percutaneous drainage of the pelvic abscess with culture positive for Escherichia coli. The patient is status post removal of the drain. 4. Positive influenza. 5. Abdominal ileus and mechanical small-bowel obstruction. 6. Acute renal injury. 7. Hypertension. 8. Nicotine dependence. The patient remains on IV antibiotics. General Surgery and ID are following. ID is recommending to continue same antibiotics and renal function and electrolytes are being closely monitored. Continue with GI and DVT prophylaxis. Continue with all current medications. Further plan of care and depending on the patient's clinical progress. MMODL / IJN: [id number] /
[2017-07-23] MEDS: KETOROLAC 30 MG/ML 1 ML VIAL IVP SCH ×4 (03:40→20:05)
[2017-07-23 06:09] LABS: Glucose,Whole Blood 109 mg/dL (75-99)
[2017-07-23] MEDS: MORPHINE SULFATE 4 MG/ML SYRINGE IVP PRN ×3 (06:18→16:34)
[2017-07-23] MEDS: ENOXAPARIN 30 MG/0.3 ML SYRINGE SQ SCH (07:44)
[2017-07-23] MEDS: metroNIDAZOLE-NS PMX 500 MG in SALINE 1 100ML.BAG IVPB SCH ×2 (07:45→16:23)
[2017-07-23] MEDS: cefTRIAXone IN SWFI 2,000 MG/20 ML SYRINGE IVP SCH (07:45)
[2017-07-23] MEDS: LISINOPRIL 10 MG TAB PO SCH (07:45)
[2017-07-23] MEDS: PANTOPRAZOLE 40 MG/10 ML VIAL IVP SCH (07:45)
[2017-07-23 09:08] LABS: Basophils % (A) 0 %; Eosinophils % (A) 0 %; HCT 41.9 % (39.0-53.0); HGB 13.4 gm/dL (13.0-17.5); Lymphocytes % (A) 5 %; MCH 33.4 pg (25.0-35.0); MCHC 32.1 g/dL (31.0-37.0); MCV 104.1 fL (80.0-100.0); Macrocytosis Slight; Mean Platelet Volume 8.4; Monocytes # (A) 0.8 k/uL (0-1.0); Monocytes % (A) 4 %; Neutrophils # (A) 16.9 k/uL (1.3-7.7); Neutrophils % (A) 89 %; Platelet Count 594 k/uL (150-450); RBC 4.02 m/uL (4.30-5.90); WBC 18.9 k/uL (3.8-10.6)
[2017-07-23 09:40] LABS: ALT 26 U/L (21-72); AST 16 U/L (17-59); Albumin 2.2 g/dL (3.5-5.0); Alkaline Phosphatase 53 U/L (38-126); Anion Gap 15 mmol/L; Blood Urea Nitrogen 16 mg/dL (9-20); Calcium 8.6 mg/dL (8.4-10.2); Carbon Dioxide 20 mmol/L (22-30); Chloride 109 mmol/L (98-107); Glucose 116 mg/dL (74-99); Potassium 3.7 mmol/L (3.5-5.1); Sodium 144 mmol/L (137-145); Total Bilirubin 0.3 mg/dL (0.2-1.3); Total Protein 4.8 g/dL (6.3-8.2)
[2017-07-23] MEDS ORDERED: SODIUM CHLORIDE 0.9% 1,000 ML IV ONE (11:44)
[2017-07-23] MEDS: SODIUM CHLORIDE 0.9% 1,000 ML IV SCH ×4 (12:06→20:06)
--- NOTE | 2017-07-23 15:39 | P.PN ---
Subjective Progress Note Date: 07/23/17 Patient is a 71-year-old male status post extensive lysis of adhesions including drainage of intra-abdominal abscess. His pain is much better controlled. No passage of flatus. Intraoperative findings are described in detail including previous IR drainage catheter malpositioned with a large intra- abdominal abscess over 50 mL drained. His daughter is at bedside. Care plan has been described including continue NG tube. He has been in the hospital place 2 weeks with decreased nutrition. Objective - Vital Signs Vital signs: Vital Signs Temp 98.0 F 07/23/17 15:00 Pulse 92 07/23/17 15:00 Resp 16 07/23/17 15:00 BP 143/81 07/23/17 15:00 Pulse Ox 98 07/23/17 15:00 Intake & Output 07/22/17 07/23/17 07/23/17 18:59 06:59 18:59 Intake Total 3700 Output Total 1285 300 100 Balance 2415 -300 -100 Intake: IV 3700 Output: Gastric Drainage 1100 Drainage 100 Left Lower Abdomen 100 Urine 135 200 100 Estimated Blood Loss 50 Other: Voiding Method Indwelling Catheter Indwelling Catheter Indwelling Catheter # Voids 2 - Exam GENERAL: Well developed and in no acute distress. Pleasant. HEENT: No sclera icterus. Extraocular movements grossly intact. Moist buccal mucosa. Head is atraumatic, normocephalic. Hears conversational speech. No nasal drainage. NG tube bilious content and functioning. NECK: Supple without lymphadenopathy. CHEST: Non-labored respirations and equal bilateral excursions. CARDIOVASCULAR: Regular rate and rhythm. Palpable 2+ radial pulses. ABDOMEN: CLARISSE drain serosanguineous. Decreased abdominal distention. No peritonitis. Dressing clean dry and intact. MUSCULOSKELETAL: No clubbing, cyanosis or edema. NEUROLOGIC: No focal or lateralizing signs. PSYCH: Appropriate affect. Alert and oriented to person, place and time. - Labs CBC & Chem 7: 07/23/17 08:37 07/23/17 08:37 Labs: Abnormal Lab Results - Last 24 Hours (Table) 07/23/17 07/23/17 07/23/17 Range/Units 05:54 08:37 08:37 WBC 18.9 H (3.8-10.6) k/uL RBC 4.02 L (4.30-5.90) m/uL MCV 104.1 H (80.0-100.0) fL Plt Count 594 H (150-450) k/uL Neutrophils # 16.9 H (1.3-7.7) k/uL Chloride 109 H (98-107) mmol/L Carbon Dioxide 20 L (22-30) mmol/L Glucose 116 H (74-99) mg/dL POC Glucose (mg/dL) 109 H (75-99) mg/dL AST 16 L (17-59) U/L Total Protein 4.8 L (6.3-8.2) g/dL Albumin 2.2 L (3.5-5.0) g/dL Microbiology - Last 24 Hours (Table) 07/16/17 23:48 Blood Culture - Final Blood No Growth after 144 hours 07/22/17 12:07 Gram Stain - Preliminary Peritoneal Fluid Wound Culture - Preliminary 07/22/17 12:07 Gram Stain - Preliminary Peritoneal Fluid Wound Culture - Preliminary 07/22/17 12:07 Anaerobic Culture - Preliminary Peritoneal Fluid 07/22/17 12:07 Anaerobic Culture - Preliminary Peritoneal Fluid Assessment and Plan (1) Small bowel obstruction due to adhesions Current Visit: Yes Status: Acute Code(s): K56.50 - INTESTNL ADHESIONS, UNSP TO PARTIAL VERSUS COMPLETE OBST SNOMED Code(s): 801487491 (2) Diverticular disease of intestine with perforation and abscess Current Visit: Yes Status: Acute Code(s): K57.80 - DVTRCLI OF INTEST, PART UNSP, W PERF AND ABSCESS W/O BLEED SNOMED Code(s): 655796398 Plan: 1. The patient was adamant to avoid a colostomy bag and as a result a temporizing measure of intra-abdominal washout and drainage catheter was placed. 2. He has prolonged over 2 weeks of minimal nutrition. Evaluation for TPN was described in detail. 3. May have ice and popsicles in the interim. 4. Upon passage of flatus, will advance diet. 5. Disposition home 5-7 days pending antibiotic management including leukocytosis resolution
[2017-07-23] MEDS: CEFEPIME 2 GM in SODIUM CHLORIDE 0.9% 50 ML IVPB SCH (21:48)
[2017-07-23] MEDS: FLUCONAZOLE IN NACL,ISO-OSM 200 MG in SALINE 1 100ML.BAG IVPB SCH (22:50)
--- NOTE | 2017-07-23 23:21 | PN ---
PROGRESS NOTE DATE OF SERVICE: 07/23/2017. REASON FOR FOLLOW UP: Abdominal abscess. INTERVAL HISTORY: The patient is afebrile, has been breathing comfortably. His abdominal pain seems to be controlled with pain medication. Did have the NG. No nausea, no vomiting. No chest pain, shortness of breath, or cough. PHYSICAL EXAMINATION: Blood pressure is 143/81 with a pulse of 92, temperature of 98. He is 98% on room air. GENERAL DESCRIPTION: An elderly male, lying in bed in no distress. RESPIRATORY SYSTEM: Unlabored breathing. Clear to auscultation anteriorly. HEART: S1, S2. Regular rate and rhythm. ABDOMEN: Soft mildly distended and tender. EXTREMITIES: No edema of feet. LABS: Hemoglobin 13.4, white count of 18.9 with a BUN of 16, creatinine 1.02. Repeat peritoneal fluid does show gram-negative and yeast. DIAGNOSTIC IMPRESSION AND PLAN: Patient with abdominal abscess from diverticulitis with CT-guided drainage, now open drainage yesterday with abdominal culture showing a gram-negative in addition to yeast. He will be continued on the Flagyl and Rocephin was switched over to cefepime. Diflucan will be added while waiting for the final ID of this pathogen. Continue supportive care. MMODL / IJN: [id number] /
[2017-07-24] MEDS: metroNIDAZOLE-NS PMX 500 MG in SALINE 1 100ML.BAG IVPB SCH ×4 (00:42→23:53)
[2017-07-24] MEDS: MORPHINE SULFATE 4 MG/ML SYRINGE IVP PRN (00:47)
[2017-07-24] MEDS: KETOROLAC 30 MG/ML 1 ML VIAL IVP SCH ×2 (02:41→07:37)
[2017-07-24] MEDS: SODIUM CHLORIDE 0.9% 1,000 ML IV SCH ×2 (07:33→17:14)
[2017-07-24 08:23] LABS: Basophils % (A) 0 %; Eosinophils # (A) 0.1 k/uL (0-0.7); Eosinophils % (A) 1 %; HCT 36.5 % (39.0-53.0); HGB 11.5 gm/dL (13.0-17.5); Lymphocytes # (A) 1.1 k/uL (1.0-4.8); Lymphocytes % (A) 7 %; MCH 32.6 pg (25.0-35.0); MCHC 31.5 g/dL (31.0-37.0); MCV 103.5 fL (80.0-100.0); Macrocytosis Slight; Mean Platelet Volume 8.2; Monocytes # (A) 0.8 k/uL (0-1.0); Monocytes % (A) 5 %; Neutrophils # (A) 13.1 k/uL (1.3-7.7); Neutrophils % (A) 86 %; Platelet Count 587 k/uL (150-450); RBC 3.53 m/uL (4.30-5.90); WBC 15.3 k/uL (3.8-10.6)
[2017-07-24] MEDS: CEFEPIME 2 GM in SODIUM CHLORIDE 0.9% 50 ML IVPB SCH ×2 (08:42→20:53)
[2017-07-24] MEDS: ENOXAPARIN 30 MG/0.3 ML SYRINGE SQ SCH (08:43)
[2017-07-24] MEDS: PANTOPRAZOLE 40 MG/10 ML VIAL IVP SCH (08:45)
[2017-07-24] MEDS: FLUCONAZOLE IN NACL,ISO-OSM 200 MG in SALINE 1 100ML.BAG IVPB SCH (08:45)
[2017-07-24] MEDS: LISINOPRIL 10 MG TAB PO SCH (08:45)
[2017-07-24 08:48] LABS: ALT 23 U/L (21-72); AST 19 U/L (17-59); Albumin 2.2 g/dL (3.5-5.0); Alkaline Phosphatase 55 U/L (38-126); Anion Gap 10 mmol/L; Blood Urea Nitrogen 14 mg/dL (9-20); Calcium 8.4 mg/dL (8.4-10.2); Carbon Dioxide 24 mmol/L (22-30); Chloride 112 mmol/L (98-107); Glucose 128 mg/dL (74-99); Potassium 3.1 mmol/L (3.5-5.1); Sodium 146 mmol/L (137-145); Total Bilirubin 0.3 mg/dL (0.2-1.3); Total Protein 4.9 g/dL (6.3-8.2)
--- NOTE | 2017-07-24 08:59 | PN ---
PROGRESS NOTE DATE OF SERVICE: 07/23/2017. HISTORY: The patient is with drainage of abscess. He is voicing concerns that it feels like his abdomen is softer. . is fair. Skin is warm, dry and intact. LABS: CBC, white blood cell count , hemoglobin 13.4, hematocrit 41.9, platelets . Chloride 109, bicarbonate 20, . ASSESSMENT: 1. Bowel obstruction secondary to intestinal lesions. The patient is status post adhesiolysis. The patient has refused colostomy bag and underwent intraabdominal washout with a drainage catheter. The patient has been in the hospital for about 2 weeks. Plan is to continue with the NG tube. The patient needs evaluation for possible TPN to maintain nutrition. 2. Status post exploratory laparotomy. 3. Acute diverticulitis with intestinal perforation and multiple abscesses. The patient is status post drainage of the pelvic abscess. Culture positive for E coli. Infectious disease is following. 4. Positive influenza. 5. Acute dehydration, prerenal azotemia. 6. Hypertension. 7. Nicotine dependence. PLAN: Patient was seen by general surgery and ID. ID is to make further recommendations on IV antibiotics. Continue with the DVT and GI prophylaxis. Continue all current medications. Further recommendations per patient's clinical progress. MMODL / IJN: [id number] /
[2017-07-24] MEDS ORDERED: LIDOCAINE 2% INJ 20 MG/ML SQ ONE (09:40)
[2017-07-24 12:02] LABS: Phosphorus 2.3 mg/dL (2.5-4.5)
[2017-07-24] MEDS ORDERED: hydrALAZINE HCL 20 MG/ML 1 ML VIAL IVP PRN (12:37)
[2017-07-24] MEDS ORDERED: POTASSIUM CHLORIDE 20 MEQ in WATER FOR INJECTION 1 100ML.BAG IVPB STA (12:38)
[2017-07-24 12:52] LABS: Glucose,Whole Blood 129 mg/dL (75-99)
[2017-07-24] MEDS: INSULIN ASPART 100 UNIT/ML 1 ML 10 ML VIAL SQ SCH ×3 (12:54→23:53)
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
--- NOTE | 2017-07-24 14:30 | IR ---
PICC LINE PLACEMENT: HISTORY: Infection requiring long-term antibiotic therapy PROCEDURE: Ultrasound and fluoroscopic guidance of PICC line placement. COMPLICATIONS: None ANESTHESIA: 1. 1% Lidocaine locally. FINDINGS/TECHNIQUE: The procedure was explained to the patient. The risks, complications, benefits and alternatives were discussed and any questions were answered. Informed consent was obtained. The patient was placed supine on the fluoroscopic table and prepped and draped in the usual sterile fas ion. Utilizing a 21 gauge needle and sonographic and fluoroscopic guidance, access in the vein was achieved and there is placement of a 0.018 guidewire. The vein is patent. A 4-F sheath was placed o margaret the guidewire. The guidewire and dilator were removed and a 4-F. PICC line was placed through th e sheath with the tip at the level of the SVC. The sheath was removed, the catheter was flushed and sutured into position. The patient was stable throughout the procedure and remained stable upon disc harge from the Department of Radiology. The vein puncture was patent under ultrasound. A marino scale image was obtained to document patency of the vein punctured. All elements of the maximal barrier technique were utilized. FLUOROSCOPY TIME: 0.1 minute and one image submitted. IMPRESSION: Successful PICC line placement under ultrasound and fluoroscopic guidance.
[2017-07-24] MEDS ORDERED: MVI, ADULT NO.4 WITH VIT K 10 ML, TRACE (CONC-1ML/DOSE) 1 ML, POTASSIUM PHOSPHATE 15 MM... IV SCH ×6 (15:00)
[2017-07-24] MEDS: KETOROLAC 30 MG/ML 1 ML VIAL IVP PRN ×2 (17:23→23:52)
[2017-07-24] MEDS ORDERED: MORPHINE ORAL SOLN 10 MG/5 ML CUP PO PRN (17:29)
[2017-07-24 17:32] LABS: Hemoglobin A1C 6.7 % (4.0-6.0)
[2017-07-24 17:35] LABS: Glucose,Whole Blood 183 mg/dL (75-99)
[2017-07-24] MEDS ORDERED: FAT EMULSION 20% 250 ML in EMPTY BAG 1 BAG IV SCH (18:00)
--- NOTE | 2017-07-24 22:29 | PN ---
PROGRESS NOTE DATE OF SERVICE: 07/24/2017 Patient seen and examined in the room. The patient is sitting up in the bed. NG tube has been pulled out. VITAL SIGNS: Temperature 97.5, pulse 90, respiration 18, blood pressure 180/98, oxygen saturation 94%. HEENT: Atraumatic, normocephalic. Pupils equal and reactive to light. Extraocular movements intact. Buccal mucosa is fair. Neck is supple. No goiter or lymphadenopathy. JVD is negative. No carotid bruit. LUNGS: Occasional rhonchi. Clear to auscultate. No rales. Heart is regular rate and rhythm without any murmurs, gallop rhythm. Abdomen is soft but distended. Bowel sounds are positive. EXTREMITIES: No edema, clubbing or cyanosis. NEUROLOGICAL EXAMINATION: Cranial nerves 2-12 grossly intact. No gross motor or sensory deficit. LABS: CBC: White blood count of 15.3, hemoglobin 11.5, hematocrit 36.7, platelet count of 587. Chemical profile: Sodium 146, potassium 3.1, chloride 112, bicarb 24, BUN 14, creatinine 0.9, glucose 128. ASSESSMENT: 1. Uncontrolled hypertension. Patient remains on home dose of lisinopril. Will add IV hydralazine p.r.n. for elevated blood pressure. Patient is status post acute diverticulitis, intestinal perforation and multiple abscesses. Patient is status post open drainage, culture showing Gram-negative organisms and patient remains on IV cefepime, Flagyl and Diflucan. 2. Markedly dilated bowel loops in abdominal areas. NG tube has been pulled out. Patient has been started on a soft diet and is tolerating well so far. 3. Positive influenza. 4. Acute dehydration, prerenal azotemia, clinically stable. 5. Hypertension, as described above. 6. Nicotine dependence. PLAN: Continue with IV antibiotics. Patient already has a PICC line in. Plan is to discharge on 9 days of IV antibiotics once cleared by Surgery. MMODL / IJN: [id number] /
--- NOTE | 2017-07-24 23:05 | PN ---
PROGRESS NOTE DATE OF SERVICE: 07/24/2017 REASON FOR FOLLOWUP: Abdominal abscess. INTERVAL HISTORY: The patient is afebrile, has been breathing comfortably. Denies having any chest pain or shortness of breath or cough. Abdominal pain is currently controlled. No nausea or vomiting. abdominal wound yet. Did get a PICC line for outpatient antibiotics. PHYSICAL EXAMINATION: Blood pressure is 157/93 with a pulse of 81, temperature of 99.5. He is 94% on room air. General description is an elderly male lying in bed in no distress. RESPIRATORY SYSTEM: Unlabored breathing. Clear to auscultation anteriorly. HEART: S1, S2. Regular rate and rhythm. ABDOMEN: Soft. Mildly distended. No guarding or rigidity. LABS: Hemoglobin 11.5, white count 15.3 with a BUN of 14, creatinine 0.92. Abdominal culture with a Gram-negative as well as yeast. DIAGNOSTIC IMPRESSION AND PLAN: Patient with abdominal abscess from ruptured diverticulitis, status post CT-guided followed by open drainage with repeat culture now showing a Gram-negative and yeast, currently on cefepime and Flagyl and Diflucan. That will be continued. Waiting for the final ID and sensitivity of the Gram-negative to determine discharge antibiotics. Continue with supportive care. MMODL / IJN: [id number] /
[2017-07-25 00:06] LABS: Glucose,Whole Blood 155 mg/dL (75-99)
[2017-07-25] MEDS: SODIUM CHLORIDE 0.9% 1,000 ML IV SCH ×2 (04:44→14:23)
[2017-07-25 06:08] LABS: Glucose,Whole Blood 156 mg/dL (75-99)
[2017-07-25] MEDS: KETOROLAC 30 MG/ML 1 ML VIAL IVP PRN ×2 (06:21→16:11)
[2017-07-25] MEDS: INSULIN ASPART 100 UNIT/ML 1 ML 10 ML VIAL SQ SCH ×3 (06:21→17:58)
[2017-07-25] MEDS: ENOXAPARIN 30 MG/0.3 ML SYRINGE SQ SCH (08:17)
[2017-07-25] MEDS: CEFEPIME 2 GM in SODIUM CHLORIDE 0.9% 50 ML IVPB SCH (08:17)
[2017-07-25] MEDS: LISINOPRIL 10 MG TAB PO SCH (08:18)
[2017-07-25] MEDS: PANTOPRAZOLE 40 MG/10 ML VIAL IVP SCH (08:18)
[2017-07-25] MEDS: metroNIDAZOLE-NS PMX 500 MG in SALINE 1 100ML.BAG IVPB SCH ×2 (09:19→15:34)
[2017-07-25 09:21] LABS: Anion Gap 12 mmol/L; Blood Urea Nitrogen 7 mg/dL (9-20); Calcium 8.1 mg/dL (8.4-10.2); Carbon Dioxide 23 mmol/L (22-30); Chloride 105 mmol/L (98-107); Glucose 161 mg/dL (74-99); Phosphorus 2.6 mg/dL (2.5-4.5); Potassium 3.4 mmol/L (3.5-5.1); Sodium 140 mmol/L (137-145)
[2017-07-25 10:03] LABS: Ionized Calcium 4.8 mg/dL (4.5-5.3)
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
[2017-07-25] MEDS: POTASSIUM CHLORIDE ER 20 MEQ TAB.ER PO SCH ×2 (10:31→13:04)
[2017-07-25] MEDS: FLUCONAZOLE IN NACL,ISO-OSM 200 MG in SALINE 1 100ML.BAG IVPB SCH (10:57)
[2017-07-25] MEDS ORDERED: DOCUSATE 100 MG CAP PO SCH (11:30)
[2017-07-25 12:25] LABS: Glucose,Whole Blood 156 mg/dL (75-99)
--- NOTE | 2017-07-25 15:22 | P.PN ---
Progress Note - Text Progress Note Date: 07/25/17 Patient seen and evaluated. Patient reports doing extremely well this morning including having bowel movements. He reported his CLARISSE was serosanguineous. In the last 3 hours, he reports while laying in bed, he felt a pull along his CLARISSE drain. He immediately felt a burning sensation at the drain site. He then noted that his CLARISSE color had changed from serous to green. The patient is postop day 3 following exploratory laparotomy with drainage of intra-abdominal abscess and placement of a drain. Patient had marked pelvic abscess involving the small bowel wall which was also drained. In fact, patient reports feeling better today than the last 3 or 4 days. At the time of my evaluation, he reports new change in color of his CLARISSE hence high suspicion for leak. Since admission, the patient has had a tenuous course with progressive diverticulitis followed by influenza flu followed by bowel obstruction followed by exploratory laparotomy. The patient had requested no colostomy at that time. Per patient request, transfer to higher level of care was requested. As the patient presents with a complex abdomen and need of surgical intensive care post procedure, I recommended transfer to tertiary care center.
[2017-07-25 16:09] LABS: HCT 41.3 % (39.0-53.0); HGB 13.1 gm/dL (13.0-17.5); Hypochromasia Slight; MCH 32.8 pg (25.0-35.0); MCHC 31.7 g/dL (31.0-37.0); MCV 103.6 fL (80.0-100.0); Macrocytosis Slight; Mean Platelet Volume 8.7; Platelet Count 474 k/uL (150-450); RBC 3.99 m/uL (4.30-5.90); RDW 12.1 % (11.5-15.5); WBC 18.5 k/uL (3.8-10.6)
[2017-07-25 16:49] LABS: Band Neutrophils % 1 %; Large Platelets Present; Lymphocytes # (M) 1.48 k/uL (1.0-4.8); Monocytes # (M) 1.67 k/uL (0-1.0); Neutrophils % (M) 82 %; Nucleated Red Blood Cells 0 /100 WBC (0-0); Total Cells Counted 100
[2017-07-25 17:31] LABS: Glucose,Whole Blood 135 mg/dL (75-99)
[2017-07-25 20:05] VITALS: BP 136/90; PULSE 93; RESP 18; TEMP 97.6
--- NOTE | 2017-07-25 20:36 | PN ---
PROGRESS NOTE DATE OF SERVICE: 07/25/2017. REASON FOR FOLLOWUP: Abdominal abscess. INTERVAL HISTORY: The patient was afebrile this morning. However in the afternoon, he did spike a fever of 100.5-101.9. He has been breathing comfortably. Denies having any chest pain. No cough. Tolerating some clear liquid diet. No worsening abdominal pain. Did have a bowel movement. EXAMINATION: Blood pressure 134/71, with a pulse of 92, temperature 98.2, T-max 101.9. General description is an elderly male up in the bed in no distress. Respiratory system unlabored breathing. Clear to auscultation anteriorly. Heart S1, S2 regular rate and rhythm. Abdomen soft. Nondistended. No guarding or rigidity. LABS: Hemoglobin is 13.9, white count of 18.5 with a BUN of 7, creatinine 0.67. The abdominal culture finalized with Pseudomonas aeruginosa sensitive to cefepime patient is on in addition to the Betty albicans. DIAGNOSTIC IMPRESSION AND PLAN: Patient with abdominal abscess status post initial CT-guided now with open drainage. Culture positive for Pseudomonas aeruginosa and Betty albicans and patient covered with cefepime, fluconazole and Flagyl. Now with new fever. Blood cultures will be repeated as the patient has persistent fever or continuous elevated white count. He may need a repeat CT. Continue supportive care. MMODL / IJN: [id number] /
--- NOTE | 2017-07-25 21:48 | DS ---
DISCHARGE SUMMARY FINAL DIAGNOSES: 1. Acute diverticulitis with trauma due to accidentally pulled the CLARISSE drain, rule out bowel injury. 2. Uncontrolled hypertension. 3. Markedly dilated bowel loops, possibly ileus. 4. Possible influenza. 5. Acute dehydration. 6. Hypertension. 7. Nicotine dependence. DISCHARGE DISPOSITION: The patient is being transferred to [facility] per surgery Dr. Durand's recommendations. Total time taken 35 minutes. HISTORY OF PRESENT ILLNESS: This 71-year-old gentleman with a past medical history of multiple medical problems was admitted with diverticulitis and as well as multiple other medical issues. The patient was seen by multiple consultants, including surgery, Infectious Disease. A CT guided drainage was done. Antibiotics were given. The patient improved significantly, but apparently the CLARISSE drain got accidentally caught between the railings and bilious drainage was noted. The patient was suspicion of possible bowel injury, so Dr. Durand discussed the case with the [facility] surgical team and the patient being transferred to [facility] surgical temp. Please refer to the medication reconciliation sheet for current medications. Currently patient is on Cefepime and Flagyl. MMODL / IJN: [id number] /
[2017-07-26] MEDS ORDERED: PANTOPRAZOLE 40 MG TABLET PO SCH (07:30)
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
== END 2017-07-25 20:15 | disposition short-term general hospital (02) | DRG 336 ==
LOC: EC 10:48 → 5MS5E 14:54 → 4MS4W 07-21 20:10
PROVIDERS: ADMIT Family Medicine; ATTEND Family Medicine
PROC: 0D9N80Z Drainage of Sigmoid Colon with Drainage Device, Via Natural or Artificial Opening Endoscopic (ICD-10-PCS; 2017-07-22)
PROC: 0DN80ZZ Release Small Intestine, Open Approach (ICD-10-PCS; 2017-07-22)
PROC: 0DNU0ZZ Release Omentum, Open Approach (ICD-10-PCS; 2017-07-22)
PROC: 02HV33Z Insertion of Infusion Device into Superior Vena Cava, Percutaneous Approach (ICD-10-PCS; principal; 2017-07-24 09:21)
DX: K57.20 Diverticulitis of large intestine with perforation and abscess without bleeding (principal); N17.9 Acute kidney failure, unspecified; K56.50 Intestinal adhesions [bands], unspecified as to partial versus complete obstruction; R18.8 Other ascites; T85.628A Displacement of other specified internal prosthetic devices, implants and grafts, initial encounter; E86.0 Dehydration; E87.6 Hypokalemia; I10 Essential (primary) hypertension; J10.1 Influenza due to other identified influenza virus with other respiratory manifestations; L27.0 Generalized skin eruption due to drugs and medicaments taken internally; Z79.2 Long term (current) use of antibiotics; Z80.1 Family history of malignant neoplasm of trachea, bronchus and lung; Z90.5 Acquired absence of kidney; Z90.81 Acquired absence of spleen; Z87.891 Personal history of nicotine dependence; B96.20 Unspecified Escherichia coli [E. coli] as the cause of diseases classified elsewhere; T36.0X5A Adverse effect of penicillins, initial encounter
CPT/HCPCS: 36415; 36569; 71045; 71046; 74019; 74021; 74176; 74177; 75989; 76937; 77001; 80048; 80053; 81003; 82150; 82330; 82565; 83036; 83690; 83735; 84100; 84478; 84520; 85025; 85610; 87040; 87070; 87075; 87077; 87102; 87186; 87205; 87502; 96361; 96365; 96375; 96376; 99285

== ENCOUNTER 2018-11-03 11:52 | Emergency (ER) | payer MEDICARE, BC ==
[2018-11-03 11:57] VITALS: TEMP 98.5
[2018-11-03] MEDS ORDERED: ONDANSETRON ODT 4 MG TAB PO STA (12:41)
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
[2018-11-03 13:45] VITALS: BP 147/91; PULSE 74; RESP 16
[2018-11-05 11:00] LABS: Malarial Thin Smear None seen (None seen)
== END 2018-11-03 13:46 | disposition home or self-care (01) ==
LOC: EC 11:52
DX: L03.211 Cellulitis of face (principal); S00.86XA Insect bite (nonvenomous) of other part of head, initial encounter; Z79.82 Long term (current) use of aspirin; Z79.899 Other long term (current) drug therapy; Z88.1 Allergy status to other antibiotic agents; Z87.891 Personal history of nicotine dependence; W57.XXXA Bitten or stung by nonvenomous insect and other nonvenomous arthropods, initial encounter
CPT/HCPCS: 36415; 87070; 87205; 87207; 99283